=== PATIENT | male | born 1950 | race Caucasian/White ===

== ENCOUNTER → 2016-11-02 | Outpatient (CLI) | payer BC ==
[~2016-11-02] MED LIST: ASPI81TA28 PO; ATEN50TA8 PO; MISCCAP55 PO; MULT-506 PO; NIAC100T5 PO
[2016-11-02 10:11] LABS: HEMATOCRIT 48.3 % (42-52); MEAN CELL VOLUME 85.6 fL (80-100); MEAN CORPUSCULAR HEMOGLOBIN 27.3 pg (25-34); MEAN CORPUSCULAR HGB CONC 31.9 g/dl (32-36); MEAN PLATELET VOLUME 10.3 fL (7.4-10.4); PLATELET COUNT 248 K/uL (130-400); RED BLOOD COUNT 5.64 M/uL (4.7-6.1); WHITE BLOOD COUNT 5.16 K/uL (4.8-10.8)
--- NOTE | 2016-11-02 10:41 | DIAGNOSTIC IMAGING REPORT ---
ABDOMEN COMPLETE (US) CLINICAL HISTORY: Left lower quadrant abdominal pain. COMPARISON STUDY: No previous studies for comparison. FINDINGS: This exam is moderately compromised by suboptimal penetration. Hepatic echogenicity is increased consistent with fatty infiltration. Areas of fatty sparing are noted. There are no gallstones. No biliary ductal dilatation is present. The pancreas is partially obscured by overlying bowel gas. Size of the spleen is normal. Right kidney measures 12.4 cm and the left measures 10.5 cm. The proximal abdominal aorta is mildly dilated, measuring 3 cm in caliber. Portions of the abdominal aorta obscured but the distal abdominal aorta is normal in caliber, measuring 1.6 cm. No ascites is identified. IMPRESSION: 1. No gallstones or biliary ductal dilatation. 2. Fatty liver. 3. Borderline aneurysmal dilatation of the proximal abdominal aorta, measuring approximately 3 cm. Mid abdominal aorta is partially obscured but caliber of distal abdominal aorta is normal. 4. Study compromised by suboptimal penetration. Partially scattered pancreas. Electronically signed by: Garland Quan M.D. 11/02/2016 10:39 AM Dictated Date/Time: 11/02/2016 10:36 AM
[2016-11-02 10:44] LABS: ALT/SGPT 58 U/L (12-78); AST/SGOT 34 U/L (15-37); BLOOD UREA NITROGEN 12 mg/dl (7-18); BUN/CREATININE RATIO 12.4 (10-20); CALCIUM 9.3 mg/dl (8.5-10.1); CARBON DIOXIDE 28 mmol/L (21-32); CHLORIDE 105 mmol/L (98-107); GLUCOSE 79 mg/dl (70-99); POTASSIUM 4.3 mmol/L (3.5-5.1); SODIUM 139 mmol/L (136-145)
[2016-11-02 10:49] LABS: ALB/GLOB RATIO 1.1 (0.9-2); ALKALINE PHOSPHATASE 101 U/L (45-117); CHOLESTEROL 217 mg/dl (0-200); CHOLESTEROL/HDL RATIO 6.6; HDL CHOLESTEROL 33 mg/dl; LDL CHOLESTEROL CALCULATED 110 mg/dl; TRIGLYCERIDES 368 mg/dl (0-150); VERY LOW DENSITY LIPOPROT CALC 74 mg/dl
--- NOTE | 2016-11-19 12:12 | CODING QUERY MEDICAL NECESSITY ---
CQSUPPORTING DIAGNOSIS NEEDED A supporting diagnosis is required for the test/procedure performed on this patient in order for us to be reimbursed by the patient's insurance. Please provide a supporting diagnosis for the following test/procedure listed below next to the test name along with your signature. *If there is no additional diagnosis for this patient that would support the following test/procedure please document that below next to the test/procedure. Test(s)/Procedure(s) that require a supporting diagnosis: DOS 11/02/16 COMPLETE BLOOD COUNT PROSTATE SPECIFIC Provider Signature: Date: Thank you Erum Villafuerte Health Information Management Once completed, please kindly fax back to [phone] For questions please call [phone]
== END | disposition home or self-care (01) ==
LOC: C.ULTR 09:01
PROVIDERS: ATTEND Family Medicine
DX: I10 Essential (primary) hypertension (principal); R10.32 Left lower quadrant pain; R35.1 Nocturia; R32 Unspecified urinary incontinence; K76.0 Fatty (change of) liver, not elsewhere classified; R03.0 Elevated blood-pressure reading, without diagnosis of hypertension

== ENCOUNTER → 2017-09-05 | Outpatient (CLI) | payer BC ==
--- NOTE | 2017-09-05 14:29 | DIAGNOSTIC IMAGING REPORT ---
THORACIC SPINE 3 VIEWS ROUTINE HISTORY: Pain THORACIC PAIN AND LOW BACK PAIN COMPARISON: None. FINDINGS: There is no fracture. Considerable scoliosis. Moderate degenerative disc change throughout. No evidence for compression deformity. IMPRESSION: Scoliosis. Degenerative change. No acute process. The above report was generated using voice recognition software. It may contain grammatical, syntax or spelling errors. Electronically signed by: Luc Meraz M.D. 09/05/2017 2:27 PM Dictated Date/Time: 09/05/2017 2:27 PM
--- NOTE | 2017-09-05 14:51 | DIAGNOSTIC IMAGING REPORT ---
L-SPINE MIN 4 VIEWS ROUTINE HISTORY: Pain COMPARISON: None. FINDINGS: There is no fracture. Mild scoliosis of the lumbar spine. Vertebral body stature is unremarkable. Mild degenerative disc change throughout. No evidence for subluxation. IMPRESSION: Mild scoliosis. Mild degenerative disc change. No acute process. The above report was generated using voice recognition software. It may contain grammatical, syntax or spelling errors. Electronically signed by: Luc Meraz M.D. 09/05/2017 2:49 PM Dictated Date/Time: 09/05/2017 2:47 PM
[2017-09-05 15:58] LABS: ALBUMIN 3.9 gm/dl (3.4-5.0); ALKALINE PHOSPHATASE 98 U/L (45-117); ALT/SGPT 40 U/L (12-78); AST/SGOT 25 U/L (15-37); BLOOD UREA NITROGEN 13 mg/dl (7-18); CALCIUM 8.9 mg/dl (8.5-10.1); CARBON DIOXIDE 26 mmol/L (21-32); CREATININE 1.19 mg/dl (0.60-1.40); GLUCOSE 114 mg/dl (70-99); POTASSIUM 4.1 mmol/L (3.5-5.1); SODIUM 140 mmol/L (136-145); TOTAL PROTEIN 8.1 gm/dl (6.4-8.2)
== END | disposition home or self-care (01) ==
LOC: C.RAD 13:24
PROVIDERS: ATTEND Family Medicine
DX: M54.5 Low back pain (principal); M54.6 Pain in thoracic spine; M51.34 Other intervertebral disc degeneration, thoracic region; M51.36 Other intervertebral disc degeneration, lumbar region

== ENCOUNTER 2024-07-09 09:56 | Inpatient (IN) ==
--- NOTE | 2024-07-09 10:24 | Emergency Department Note ---
Impression & Plan Acute hypoxemic respiratory failure, Bladder rupture, MAU (acute kidney injury) ED Provider Note NAME: JAMAR SPRING AGE: 73 SEX: M : 1950 ARRIVES VIA: Walk-In INFORMANT: Patient, ED PROVIDER(S): Olivier Burch MD CHIEF COMPLAINT: Abdominal pain MEDICAL DECISION MAKING: Patient presents with the above. Recent extraperitoneal bladder perforation. Creatinine still elevated so CT abdomen pelvis performed. IV was established and blood work was obtained. [id number] showed a creatinine greater than 3. Patient was ordered IV Tylenol as well as IV Zofran. Chest x-ray performed as the patient had borderline hypoxia with a sats of 89%. The patient's blood work shows a white count of 11.9 with normal hemoglobin and platelet count kidney function still elevated at 2.94 but slightly improved compared to his most recent presentation to the emergency department. Patient's chest x-ray did show concern for the possibility of a right lower lobe pneumonia. The patient was ordered IV Rocephin. CT abdomen pelvis does show the persistent extraperitoneal bladder rupture. Retroperitoneal gas similar to CT on the . No evidence of bowel obstruction but could have ileus. Given the patient's hypoxia as well as persistent kidney dysfunction and the fact that the patient left AGAINST MEDICAL ADVICE to believe patient would benefit from inpatient treatment at this time. I did speak with JESSICA Renae and the patient will be seen by urology. I also did speak with Dr. Dennis and the patient was admitted to the medicine service. Critical Care: I have personally spent 52 minutes of critical care time in direct management of this patient. This includes bedside care, interpretation of diagnostic studies, and testing, discussion with consultants, patient, and family members, and other require inpatient management activities. This 52 minutes is in excess of all separately billable procedures. Discussion w/ other healthcare providers: JESSICA Renae with Dr. Fuentes urology Dr. Dennis inpatient medicine service Prior /Outside records reviewed: none Differential diagnosis: Appendicitis, testicular torsion, UTI, diverticulitis, obstruction, renal colic, mesenteric adenitis, enteririts, PUD, pancreatitis, biliary pathology, hernia, volvulus, constipation, as well as other pathologies were considered. Diagnostics, as interpreted by me: ECG: None Cardiac monitoring: An order was placed for continuous cardiac monitoring. The monitor shows a rate of 79 with sinus rhythm. Patient was placed on pulse oximetry Medical decision rules: none Imaging studies: I informally interpreted the patient's chest x-ray shows concern for right lower lobe consolidation with formal report to follow. HPI: Patient presents due to concerns for lower abdominal pain. The patient states that it really worsened yesterday into today. The patient states it is in the lower abdomen but worse on the left side. Patient reports prior history of diverticulitis and this may feel similar. Patient reportedly did have a recent urologic procedure completed by Dr. Fuentes. The patient reportedly did leave AGAINST MEDICAL ADVICE at that time. Patient denies any chest pains or shortness of breath. Former smoker let smoking 40 years ago. The patient denies any cough or fever. Patient did not take anything for symptoms at home. Patient states that he still has a catheter in place with a leg bag. PAST MEDICAL HISTORY: See Below PAST SURGICAL HISTORY: See Below SOCIAL HISTORY: See Below HOME MEDICATIONS: See Below ALLERGIES: See Below VITALS: See Below PHYSICAL EXAMINATION: GENERAL: NAD, non-toxic. EYE EXAM: Normal conjunctiva. PERRL, no anisocoria and EOM's grossly intact w/o pain. OROPHARYNX: Moist mucus membranes, grossly normal dentition. NECK: Trachea midline, no stridor. Supple, no nuchal rigidity, no adenopathy, non-tender. No signs of meningismus. FROM of the neck with good chin to chest and neck extension. LUNGS: Clear to auscultation. Normal chest wall mechanics. HEART: NSR, no MRG. ABDOMEN: Abdomen soft, non-tender, no masses, no rebound or guarding. BACK: No CVA TTP. SKIN: No rashes and no bruising. UPPER EXTREMITIES: Upper extremities are grossly normal. LOWER EXTREMITIES: Grossly normal, no edema. NEURO EXAM: Awake and alert, follows commands, no obvious facial asymmetry, normal speech, moves all 4 extremities. Past Med/Surg History Problem List (Updated 07/10/24 @ 07:05 by Olivier Burch MD) MAU (acute kidney injury) (Acute) Bladder rupture (Acute) Acute hypoxemic respiratory failure (Acute) Ex-smoker Pulmonary sequestration Abnormal chest CT Peritonitis Complicated UTI (urinary tract infection) Acute metabolic encephalopathy Ileus MAU (acute kidney injury) (Acute) Hypoxia (Acute) Extraperitoneal bladder perforation (Acute) Extraperitoneal bladder perforation Kidney stones (Chronic) Bronchogenic cyst Peripheral vascular disease Hyperlipidemia Thoracic aortic aneurysm (TAA) Coronary artery disease Vitamin D deficiency Chronic kidney disease with active medical management without dialysis, stage 3 (moderate) Atypical angina Surgical wound, non healing (Acute) Encounter for pre-operative examination Tinnitus, bilateral Sensorineural hearing loss (SNHL) of left ear with restricted hearing of right ear Headache Scoliosis Low back pain Hypertension Medical History Bladder stone s/p removal 07/06/24 (Dr Tj Fuentes) Carotid artery disease mild Hx of peripheral vascular disease Hx of hyperlipidemia Hx of coronary artery disease Chronic kidney disease with active medical management without dialysis, stage 3 (moderate) [facility] Nephrology - Dr. Saul Thoracic aortic aneurysm (TAA) 4.9cm Hx of scoliosis Hx of renal calculi left staghorn calculus - s/p lithotripsy - 07/06/24 (Dr Tj Fuentes) Hypertension History of asthma no current meds Melanoma in situ hx-removed; left foot - 2023 - Dr Michela Lott, [facility] [place] Surgical History Status post laser lithotripsy of ureteral calculus - Dr Tj Fuentes History of cataract surgery rt/lt Hx of melanoma excision Hx of basal cell carcinoma excision H/O umbilical hernia repair S/P appendectomy S/P colonoscopy Family History Father , age 101 Kidney stones Myocardial infarction Family/Other Kidney stones Mother , age 65 Aortic aneurysm Social History Smoking Status: Former smoker Tobacco Type: Cigarettes Smoking End Date: early ; smoked for 10-15 years; Second Hand Exposure: No; Do You Dip or Chew Tobacco: No; Tobacco Cessation Education Requested by Patient: No Hx Alcohol Use: No Hx Substance Use: No Preferred Language: German Communication Ability: Effective Visual Impairment: No Limitations Hearing Ability: Normal [employer] Team [employer] Required: No Beliefs That Will Affect Care: None marital status: Single Current Living Situation: Alone Current Living Situation Comment: [place] current occupational status: retired current occupation: [employer] to [employer] How many Children do You have: 0 Other Information That Helps Us Care for You: No Feels Safe at Home: Yes Safety Concerns: Feels Safe At This Time Diet: regular caffeine: Yes Physical Activity Frequency: Does not Exercise Do you think of yourself as: straight/heterosexual Gender Identity: Male Assistive Devices: None Allergies Allergies Allergy/AdvReac Type Severity Reaction Status Date / Time No Known Allergies Allergy Verified 07/06/24 08:07 Home Meds Home Medications Medication Instructions Recorded Confirmed atenolol 50 mg tablet 50 mg PO QPM 11/12/19 07/09/24 aspirin-caffeine 500 mg-32.5 mg 1 tab PO DAILY PRN Pain 08/07/22 07/09/24 tablet (Soraya Back and Body) aspirin 81 mg tablet,delayed 81 mg PO QPM 11/28/23 07/09/24 release (Adult Low Dose Aspirin) omega 4-fud-wzs-fish oil 60 mg-90 1 cap PO QPM 11/28/23 07/09/24 mg-500 mg capsule (Fish Oil) dandelion root 525 mg capsule 525 mg PO QPM 06/26/24 07/09/24 Previous Rx's Medication Instructions Recorded phenazopyridine 200 mg tablet 200 mg PO Q8H PRN pain #10 tabs 07/06/24 (Pyridium) tamsulosin 0.4 mg capsule 0.4 mg PO HS #30 caps 07/06/24 cephalexin 500 mg capsule 500 mg PO Q6H 7 days #28 caps 07/07/24 Results & Data (ED) Vital Signs Vital Signs - 24 hr 07/09/24 10:18 07/09/24 10:42 07/09/24 11:00 Temperature 37.2 C Temperature Source Oral Pulse Rate 78 Pulse Rate [Apical] Respiratory Rate 20 Respiratory Effort / Characteristics Non-Labored Respiratory Depth Normal Respiratory Pattern Regular Blood Pressure 155/87 H Blood Pressure [Right Arm] Blood Pressure Mean 109 Blood Pressure Mean [Right Arm] Pulse Oximetry 92 89 L 94 Oxygen Delivery Method Room Air Room Air Nasal Cannula Oxygen Flow Rate 2 Sepsis Recent Fever Within 48 Hours No Sepsis New/Unexplained Change in Mental Status N/A Sepsis Action Taken by Nursing No Action Required 07/09/24 11:48 07/09/24 13:04 Temperature Temperature Source Pulse Rate 72 Pulse Rate [Apical] 64 Respiratory Rate 20 Respiratory Effort / Characteristics Respiratory Depth Normal Respiratory Pattern Blood Pressure Blood Pressure [Right Arm] 124/72 Blood Pressure Mean Blood Pressure Mean [Right Arm] 89 Pulse Oximetry 98 Oxygen Delivery Method Nasal Cannula Oxygen Flow Rate 2 Sepsis Recent Fever Within 48 Hours Sepsis New/Unexplained Change in Mental Status Sepsis Action Taken by Long Term Medications Current Medication List: was personally reviewed by me Laboratory Data Attestation: I reviewed the patient's lab results. 07/10/24 05:44 07/10/24 05:44 Lab Results 07/09/24 07/09/24 Range/Units 10:43 10:49 WBC 11.94 H (4.8-10.8) K/ul RBC 5.83 (4.70-6.10) M/uL Hgb 15.1 (14.0-18.0) g/dl POC Hgb 16.7 (14.0-18.0) g/dl Hct 46.9 (42.0-52.0) % POC Hct 49 (42-52) % MCV 80.4 (80.0-100.0) fL MCH 25.9 (25.0-34.0) pg MCHC 32.2 (32.0-36.0) g/dL RDW Std Deviation 46.8 H (36.4-46.3) fL RDW Coeff of Jennifer 17.1 H (11.5-14.5) % Plt Count 255 (130-400) K/uL MPV 10.1 (9.4-12.4) fL Immature Gran % (Auto) 1.2 % Neut % (Auto) 85.1 % Lymph % (Auto) 5.7 % Wallace % (Auto) 7.5 % Eos % (Auto) 0.1 % Baso % (Auto) 0.4 % Neut # (Auto) 10.17 H (1.40-6.50) K/uL Lymph # (Auto) 0.68 L (1.20-3.40) K/uL Wallace # (Auto) 0.89 H (0.11-0.59) K/uL Eos # (Auto) 0.01 (0.00-0.50) K/uL Baso # (Auto) 0.05 (0.00-0.20) K/uL Immature Gran # (Auto) 0.14 (0.01-0.20) K/uL POC Sodium 139 (135-144) mmol/L Sodium 138 (136-145) mmol/L POC Potassium 4.4 (3.3-5.0) mmol/L Potassium 4.4 (3.5-5.1) mmol/L POC Chloride 107 (101-112) mmol/L Chloride 106 (98-107) mmol/L Carbon Dioxide 21 (21-32) mmol/L POC Total CO2 19 L (24-31) mmol/L Anion Gap 11 (3-11) POC Anion Gap 18.0 (16-25) mmol/L POC BUN 41 H (7-18) mg/dl BUN 43 H (6-23) mg/dl Creatinine 2.94 H (0.6-1.4) mg/dl POC Creatinine 3.3 H (0.6-1.3) mg/dl Est Cr Clr Drug Dosing 26.2 ml/min eGFR 21.65 BUN/Creatinine Ratio 14.6 (10-20) Glucose 129 H (70-99(Fasting)) mg/dl POC Glucose (other) 126 H (70-99) mg/dl Calcium 9.6 (8.6-10.3) mg/dl POC Ioniz Calcium Mika 1.17 (1.12-1.32) mmol/l Total Bilirubin 0.7 (0.2-1.0) mg/dl AST 16 (13-39) U/L ALT 7 (7-52) U/L Alkaline Phosphatase 100 (34-104) U/L Total Protein 8.2 (6.0-8.3) gm/dl Albumin 4.1 (3.4-5.0) gm/dl Globulin 4.1 H (2.5-4.0) gm/dl Albumin/Globulin Ratio 1.0 (0.9-2) Lipase 10 L (11-82) U/L Procalcitonin 0.34 (0-0.5) ng/ml Administered Medications Lactated Ringer's (Lr) 1,000 mls @ 100 mls/hr IV .Q10H MARIAJOSE Stop: 07/10/24 09:14 Last Admin: 07/10/24 00:49 Dose: 100 mls/hr Documented By: Infusion: 07/10/24 00:46 Dose: Infused Documented By: Admin: 07/09/24 13:31 Dose: 100 mls/hr Documented By: RBUIA Famotidine (Pepcid 20mg Iv Push) 20 mg in 5 mls @ 2.5 mls/min IV DAILY MARIAJOSE Stop: 08/08/24 16:14 Last Admin: 07/09/24 17:10 Dose: 2.5 mls/min Documented By: Piperacillin Sod/Tazobactam Sod (Zosyn) 4.5 gm in 100 mls @ 25 mls/hr IV Q8H MARIAJOSE; Protocol Stop: 07/19/24 19:59 Last Admin: 07/10/24 04:00 Dose: 25 mls/hr Documented By: Infusion: 07/10/24 00:54 Dose: Infused Documented By: Admin: 07/09/24 20:54 Dose: 25 mls/hr Documented By: JACQUES Acetaminophen (Ofirmev) 1,000 mg in 100 mls @ 400 mls/hr IV Q8H PRN PRN Reason: mild pain or T>38 C Stop: 07/12/24 15:47 Last Infusion: 07/09/24 21:23 Dose: Infused Documented By: Admin: 07/09/24 20:57 Dose: 400 mls/hr Documented By: JACQUES Tamsulosin HCl (Tamsulosin Hcl 0.4 Mg Cap) 0.4 mg PO HS MARIAJOSE Stop: 08/08/24 20:59 Last Admin: 07/09/24 21:23 Dose: Not Given Documented By: JACQUES Discontinued Medications Acetaminophen (Ofirmev) 1,000 mg in 100 mls @ 400 mls/hr IV NOW STA Stop: 07/09/24 10:56 Last Infusion: 07/09/24 12:28 Dose: Infused Documented By: Admin: 07/09/24 11:42 Dose: 400 mls/hr Documented By: RUBIA Ceftriaxone Sodium (Rocephin) 2,000 mg in 50 mls @ 100 mls/hr IV NOW STA Stop: 07/09/24 12:53 Last Admin: 07/09/24 13:05 Dose: Not Given Documented By: RUBIA Daptomycin 500 mg/ Syringe 10 mls @ 5 mls/min IV NOW STA; Protocol Stop: 07/09/24 13:07 Last Admin: 07/09/24 14:52 Dose: 5 mls/min Documented By: MMG Piperacillin Sod/Tazobactam Sod (Zosyn) 4.5 gm in 100 mls @ 200 mls/hr IV NOW ONE; Protocol Stop: 07/09/24 13:32 Last Infusion: 07/09/24 16:45 Dose: Infused Documented By: Admin: 07/09/24 14:51 Dose: 200 mls/hr Documented By: MMG Ioversol (Optiray 320 100ml) 90 ml IV ONCE ONE Stop: 07/09/24 15:23 Last Admin: 07/09/24 17:10 Dose: Not Given Documented By: ENS Imaging Data Radiologist's Impression: Chest X-Ray 07/09/24 10:54 XR chest 1V portable CLINICAL HISTORY: low sats COMPARISON STUDY: 08/19/2023 FINDINGS: There is stable prominent cardiomegaly with increased pulmonary vascular congestion. There is increased stranding opacity in the lung bases with partial obscuration of the diaphragm. No pleural effusion or pneumothorax. Stable scoliosis. IMPRESSION: 1. CHF. 2. Atelectasis versus pneumonia in the lung bases. ACT 112: Negative or not required by law. Electronically signed by: Norbert Murray M.D. 07/09/2024 11:13 AM Abdomen/Pelvis CT 07/09/24 10:53 CT OF THE ABDOMEN AND PELVIS WITHOUT CONTRAST CLINICAL HISTORY: L>R lower ab pain; recent uro procedure COMPARISON STUDY: CT of the abdomen and pelvis July 07, 2024. TECHNIQUE: Axial images of the abdomen and pelvis were obtained without IV contrast. Images were reviewed in the axial, sagittal, and coronal planes. Automated exposure control was utilized for the study. A dose lowering technique was utilized adhering to the principles of ALARA. FINDINGS: An irregular 9.1 cm right lower lobe opacity is similar to CT of July 07, 2024. No pneumatosis or portal venous gas is present. There is hepatic steatosis. Peripherally calcified 6.2 x 5.1 cm lesion adjacent to the right adrenal gland is again noted. Spleen, adrenal glands and pancreas are unremarkable on unenhanced exam. There is colonic diverticulosis without evidence for acute diverticulitis. There is no evidence for a bowel obstruction. There is mild gaseous distention of the colon, slightly increased since prior examination. Prostate is enlarged, measuring 5.7 cm in transverse diameter. A Ceron has been placed in the interim. Bladder is collapsed. There is a small amount gas within the bladder. Extensive extraperitoneal gas, predominantly within the space of Retzius, is similar to CT of July 07, 2024. Associated right retroperitoneal gas is also similar to prior exam. Associated fluid within the space of Retzius has decreased in amount. No definite pneumoperitoneum. Left ureteral stent remains in place. There is no hydronephrosis. There are no ureteral calculi. Bilateral renal calculi are again noted. IMPRESSION: 1. Extensive extraperitoneal and right retroperitoneal gas, similar to CT of July 07, 2024. Associated extraperitoneal fluid has decreased since prior exam. The findings suggest extraperitoneal bladder rupture. 2. Interval placement of a Ceron catheter. 3. Left ureteral stent in place. No hydronephrosis. No ureteral calculi. Bilateral nephrolithiasis. 4. Mild gaseous distention of the colon without evidence for a bowel obstruction. This may represent an ileus. 5. Colonic diverticulosis. 6. Additional findings, as described above. These are unchanged since prior CT. ACT 112: Negative or not required by law. Electronically signed by: Garland Quan M.D. 07/09/2024 11:37 AM Chest X-Ray 07/09/24 10:54 XR chest 1V portable CLINICAL HISTORY: low sats COMPARISON STUDY: 08/19/2023 FINDINGS: There is stable prominent cardiomegaly with increased pulmonary vascular congestion. There is increased stranding opacity in the lung bases with partial obscuration of the diaphragm. No pleural effusion or pneumothorax. Stable scoliosis. IMPRESSION: 1. CHF. 2. Atelectasis versus pneumonia in the lung bases. ACT 112: Negative or not required by law. Electronically signed by: Norbert Murray M.D. 07/09/2024 11:13 AM Discharge Plan Visit Data Chief Complaint: Abdominal Pain Stated Complaint: REF BY DOC, ABD PAIN ED Provider: Olivier Burch Discharge Problem: Acute hypoxemic respiratory failure, Bladder rupture, MAU (acute kidney injury) Patient Disposition: Admitted As Inpatient Condition: Good Discharge Instructions Interventions: ED Discharge Assessment Last Done: 07/09/24 14:46 Discharge Problem:
[2024-07-09 11:01] LABS: Basophils # (auto) 0.05 K/uL (0.00-0.20); Basophils % (auto) 0.4 %; Eosinophils # (auto) 0.01 K/uL (0.00-0.50); Eosinophils % (auto) 0.1 %; Hematocrit (blood only) 46.9 % (42.0-52.0); Hemoglobin 15.1 g/dl (14.0-18.0); Immature Granulocytes # (auto) 0.14 K/uL (0.01-0.20); Immature Granulocytes % (auto) 1.2 %; Lymphocytes # (auto) 0.68 K/uL (1.20-3.40); Lymphocytes % (auto) 5.7 %; Mean Corpuscular Hemoglobin 25.9 pg (25.0-34.0); Mean Corpuscular Hgb Conc 32.2 g/dL (32.0-36.0); Mean Corpuscular Volume 80.4 fL (80.0-100.0); Mean Platelet Volume 10.1 fL (9.4-12.4); Monocytes # (auto) 0.89 K/uL (0.11-0.59); Monocytes % (auto) 7.5 %; Neutrophils # (auto) 10.17 K/uL (1.40-6.50); Neutrophils % (auto) 85.1 %; Platelet Count 255 K/uL (130-400); RDW Coefficient of Variation 17.1 % (11.5-14.5); RDW Standard Deviation 46.8 fL (36.4-46.3); Red Blood Count 5.83 M/uL (4.70-6.10); White Blood Count 11.94 K/ul (4.8-10.8)
[2024-07-09 11:01] LABS: iSTAT Creatinine 3.3 mg/dl (0.6-1.3); iSTAT Hemoglobin 16.7 g/dl (14.0-18.0); iSTAT Ionized Calcium 1.17 mmol/l (1.12-1.32); iSTAT Potassium 4.4 mmol/L (3.3-5.0)
--- NOTE | 2024-07-09 11:15 | XRay Report ---
XR chest 1V portable CLINICAL HISTORY: low sats COMPARISON STUDY: 08/19/2023 FINDINGS: There is stable prominent cardiomegaly with increased pulmonary vascular congestion. There is increased stranding opacity in the lung bases with partial obscuration of the diaphragm. No pleura l effusion or pneumothorax. Stable scoliosis. IMPRESSION: 1. CHF. 2. Atelectasis versus pneumonia in the lung bases. ACT 112: Negative or not required by law. Electronically signed by: Norbert Murray M.D. 07/09/2024 11:13 AM
[2024-07-09 11:19] LABS: Albumin Level 4.1 gm/dl (3.4-5.0); BUN Creatinine Ratio 14.6 (10-20); Bilirubin,Total 0.7 mg/dl (0.2-1.0); Calcium 9.6 mg/dl (8.6-10.3); Creatinine Clr Calc Pharmacy 26.2 ml/min; Globulin 4.1 gm/dl (2.5-4.0); Potassium 4.4 mmol/L (3.5-5.1); Total Protein 8.2 gm/dl (6.0-8.3)
--- NOTE | 2024-07-09 11:38 | CT Scan Report ---
CT OF THE ABDOMEN AND PELVIS WITHOUT CONTRAST CLINICAL HISTORY: L>R lower ab pain; recent uro procedure COMPARISON STUDY: CT of the abdomen and pelvis July 07, 2024. TECHNIQUE: Axial images of the abdomen and pelvis were obtained without IV contrast. Images were revi ewed in the axial, sagittal, and coronal planes. Automated exposure control was utilized for the chi dy. A dose lowering technique was utilized adhering to the principles of ALARA. FINDINGS: An irregular 9.1 cm right lower lobe opacity is similar to CT of July 07, 2024. No pneumatos is or portal venous gas is present. There is hepatic steatosis. Peripherally calcified 6.2 x 5.1 cm l esion adjacent to the right adrenal gland is again noted. Spleen, adrenal glands and pancreas are unr emarkable on unenhanced exam. There is colonic diverticulosis without evidence for acute diverticulit is. There is no evidence for a bowel obstruction. There is mild gaseous distention of the colon, slig htly increased since prior examination. Prostate is enlarged, measuring 5.7 cm in transverse diameter . A Ceron has been placed in the interim. Bladder is collapsed. There is a small amount gas within th e bladder. Extensive extraperitoneal gas, predominantly within the space of Retzius, is similar to CT of July 07, 2024. Associated right retroperitoneal gas is also similar to prior exam. Associated flui d within the space of Retzius has decreased in amount. No definite pneumoperitoneum. Left ureteral st ent remains in place. There is no hydronephrosis. There are no ureteral calculi. Bilateral renal calc do are again noted. IMPRESSION: 1. Extensive extraperitoneal and right retroperitoneal gas, similar to CT of July 07, 2024. Associated extraperitoneal fluid has decreased since prior exam. The findings suggest extraperitoneal bladder r upture. 2. Interval placement of a Ceron catheter. 3. Left ureteral stent in place. No hydronephrosis. No ureteral calculi. Bilateral nephrolithiasis. 4. Mild gaseous distention of the colon without evidence for a bowel obstruction. This may represent an ileus. 5. Colonic diverticulosis. 6. Additional findings, as described above. These are unchanged since prior CT. ACT 112: Negative or not required by law. Electronically signed by: Garland Quan M.D. 07/09/2024 11:37 AM
[2024-07-09] MEDS: ACETAMINOPHEN 1,000 MG/100 ML VIAL IV STA (11:42)
--- NOTE | 2024-07-09 12:26 | History & Physical Report ---
Date of Service July 09, 2024 Assessment & Plan (1) Extraperitoneal bladder perforation: (2) MAU (acute kidney injury): (3) Ileus: (4) Complicated UTI (urinary tract infection): (5) Peritonitis: (6) Acute metabolic encephalopathy: (7) Hypoxia: (8) Kidney stones: (9) Peripheral vascular disease: (10) Hyperlipidemia: (11) Thoracic aortic aneurysm (TAA): (12) Hypertension: (13) Abnormal chest CT: Plan 73yo male with history of HTN, thoracic aortic aneurysm, melanoma of left foot s/p excision 2023, and kidney stone/bladder stone who presents today from home with ongoing left-sided abdominal pain as well as suprapubic pain. Patient underwent cystoscopy with Laser Cystolitholapaxy and Laser fulguration/cauterization of prostatic varicosity, left Ureteronephroscopy, Retrograde Pyelogram, Ureteral Dilation, Laser Destruction of Stone, Basket Extraction of the Stone, Insertion of urinary stent on left by Dr Jamar Fuentes on 07/06/24. He had a large bladder stone - about 2.5cm in size - as well as a large staghorn kidney stone on the left that were treated/removed. Post-op he was discharged to home in stable condition. He was asked to take prophylactic keflex upon discharge home. Returned to the [facility] ER on 07/07/24 with complaints of abdominal pain, nausea, difficulty voiding, and hematuria. CT abd/pelvis at that time showed findings concerning for extraperitoneal bladder rupture with free air & free fluid. [facility] Urology was consulted. He had evidence of MAU with creatinine of 3.8 thought 2nd to bladder perforation/recent surgery. Geiger catheter was placed. By report he signed out AMA as the ER attending was planning to do additional testing for hypoxia noted while in the ER that evening. #abdominal pain - -suspect multifactorial causes including peritonitis from his bladder rupture, ?UTI, ileus, etc. -CT a/p today shows improved free fluid but still with considerable free air in the abdomen -CT also shows evidence of colonic ileus -NPO, IVF, IV antibiotics in the form of zosyn/daptomycin, morphine prn, urology consult as below, serial exams #extraperitoneal bladder rupture - -as seen initially on CT abd/pelvis on 07/07/2024 -this occurred in the setting of recent cystoscopy with considerable urological intervention of a large bladder stone, left-sided staghorn stone, stent placement on left, fulguration of varicosities, etc. -urology has been consulted -they are planning on CT cystogram to confirm ongoing bladder leak -appreciate urology consultation & management -NPO, IVF, IV antibiotics, pain meds, etc. -continue geiger -await CT cystogram results #ileus - -clinical history & radiographic findings consistent with such -recent surgery, bladder rupture with free air/fluid, etc all to blame -keep NPO -IV fluids -ambulation as tolerated -serial exams -await passage of flatus & stool -keep mag/K wnl #suspected complicated UTI - -u/a suspicious for such although no bacteria on microscopy -urine cx, blood cx's dispatched -in light of bladder rupture, recent surgery/instrumentation, peritonitis, etc --> broad spectrum IV abx with zosyn & daptomycin #peritonitis - suspected - -as above #MAU - -improving -peak creatinine was 3.8 on 07/07/24 -now 2.9 today -continue geiger -IV fluids -daily BMP #acute metabolic encephalopathy - -2nd to bladder rupture, ?UTI, peritonitis, MAU, recent surgery, etc. -supportive care -treat all individual issues #hypertension - -hold atenolol -cont flomax in light of urological issues #hypoxia with abnormal RLL on chest imaging - -the RLL abnormal lung findings appear chronic -patient vaguely remembers being told 10+ years ago about abnormalities in the right lower lobe -he does have chronic cough but that cough is unchanged -I have low suspicion that he has an acute process of the RLL such as a superimposed RLL pneumonia -with that said I consulted Dr Bob from Pulmonary for his opinion regarding the RLL findings -bronchogenic cyst? pulmonary sequestration? -in light of hypoxia seen on 07/07 as well as today he should have a formal 2- step prior to discharge home -in light of body habitus, large neck, etc he should also have a formal sleep study as outpatient in the future -order flutter valve & incentive spirometry as the abdominal distension will lead to shallow breathing and atelectasis -of note - pt's chest x-ray today with "CHF" on report but he has no clinical evidence of such on examination #h/o melanoma of left foot in 2023, s/p excision - -no signs of metastatic disease/recurrent disease on imaging #thoracic ascending aortic aneurysm - -4.9cm in diameter on CT chest in 2023; he is due for repeat imaging -he will be seen at [facility] in the next few weeks as outpatient for the abnormal RLL; suspect they will repeat his chest imaging at that time and aneurysm can be rechecked then #DVT proph - -urology is ok with low-dose heparin SC - 5000 BID - starting tomorrow; ordered for 07/10 AM #morbid obesity - BMI ~40 #PAD - -patient had arterial duplex studies of both legs with ABIs at [facility] in 2023 -RITIKA on right was wnl; RITIKA on left was reduced -duplex showed mild PAD of right leg with mod-severe PAD of the LLE -he denies any recent PAD symptoms of either leg -should continue on aspirin 81mg daily -LDL was 139 earlier this month --- ideally should be on statin therapy for such; I am not aware of any statin intolerance will order PT/OT evals while here due to weakness History of Present Illness Chief Complaint: abdominal pain Primary Care Provider: Martha Huggins, 73yo male with history of HTN, thoracic aortic aneurysm, melanoma of left foot s/p excision 2023, and kidney stone/bladder stone who presents today from home with ongoing left-sided abdominal pain as well as suprapubic pain. Patient underwent cystoscopy with Laser Cystolitholapaxy and Laser fulguration/cauterization of prostatic varicosity, left Ureteronephroscopy, Retrograde Pyelogram, Ureteral Dilation, Laser Destruction of Stone, Basket Extraction of the Stone, Insertion of urinary stent on left by Dr Jamar Fuentes on 07/06/24. He had a large bladder stone - about 2.5cm in size - as well as a large staghorn kidney stone on the left that were treated/removed. Post-op he was discharged to home in stable condition. He was asked to take prophylactic keflex upon discharge home. He returned to [facility] on 07/07/24 with abdominal pain, nausea, difficulty voiding, and gross hematuria. CT abd/pelvis at that time showed evidence of bladder perforation with free fluid as well as free air. Creatinine was elevated to 3.8. Was seen by [facility] - geiger catheter placed - and ultimately signed out AMA from the ER on 07/07/24 per the ER attending documentation from that evening. Upon return home he continued with abdominal pain, nausea, no flatus or bowel movement, abdominal distension/bloating, and poor appetite. He also has felt confused. Denies dyspnea but does have baseline THOMAS. Has chronic, daily cough with some sputum production. Reports he will be seeing [facility] in a few weeks for the chronic right lower lobe abnormalities seen on CT scan. While in the ER he was noted to be mildly hypoxic in room air - 89% - and thus supplemental oxygen was added. During my admission assessment his main complaint is that of the left-sided abdominal pain & suprapubic pain. Denies any issues with his geiger catheter since insertion on 07/07/24. Allergies Allergy/AdvReac Type Severity Reaction Status Date / Time No Known Allergies Allergy Verified 07/06/24 08:07 Home Medications Medication Instructions Recorded Confirmed Type atenolol 50 mg tablet 50 mg PO QPM 11/12/19 07/09/24 History aspirin-caffeine 500 mg-32.5 mg 1 tab PO DAILY PRN Pain 08/07/22 07/09/24 History tablet (Soraya Back and Body) aspirin 81 mg tablet,delayed 81 mg PO QPM 11/28/23 07/09/24 History release (Adult Low Dose Aspirin) omega 2-ivx-gev-fish oil 60 mg-90 1 cap PO QPM 11/28/23 07/09/24 History mg-500 mg capsule (Fish Oil) dandelion root 525 mg capsule 525 mg PO QPM 06/26/24 07/09/24 History phenazopyridine 200 mg tablet 200 mg PO Q8H PRN pain #10 tabs 07/06/24 07/09/24 Rx (Pyridium) tamsulosin 0.4 mg capsule 0.4 mg PO HS #30 caps 07/06/24 07/09/24 Rx cephalexin 500 mg capsule 500 mg PO Q6H 7 days #28 caps 07/07/24 07/09/24 Rx Past Med/Surg History Problem List (Updated 07/09/24 @ 17:52 by July Bob MD, [facility]) Ex-smoker Pulmonary sequestration Abnormal chest CT Peritonitis Complicated UTI (urinary tract infection) Acute metabolic encephalopathy Ileus MAU (acute kidney injury) (Acute) Hypoxia (Acute) Extraperitoneal bladder perforation (Acute) Extraperitoneal bladder perforation Kidney stones (Chronic) Bronchogenic cyst Peripheral vascular disease Hyperlipidemia Thoracic aortic aneurysm (TAA) Coronary artery disease Vitamin D deficiency Chronic kidney disease with active medical management without dialysis, stage 3 (moderate) Atypical angina Surgical wound, non healing (Acute) Encounter for pre-operative examination Tinnitus, bilateral Sensorineural hearing loss (SNHL) of left ear with restricted hearing of right ear Headache Scoliosis Low back pain Hypertension Medical History Bladder stone s/p removal 07/06/24 (Dr Tj Fuentes) Carotid artery disease mild Hx of peripheral vascular disease Hx of hyperlipidemia Hx of coronary artery disease Chronic kidney disease with active medical management without dialysis, stage 3 (moderate) [facility] Nephrology - Dr. Saul Thoracic aortic aneurysm (TAA) 4.9cm Hx of scoliosis Hx of renal calculi left staghorn calculus - s/p lithotripsy - 07/06/24 (Dr Tj Fuentes) Hypertension History of asthma no current meds Melanoma in situ hx-removed; left foot - 2023 - Dr Michela Lott, [facility] Dermatology [place] Surgical History Status post laser lithotripsy of ureteral calculus - Dr Tj Fuentes History of cataract surgery rt/lt Hx of melanoma excision Hx of basal cell carcinoma excision H/O umbilical hernia repair S/P appendectomy S/P colonoscopy Family History Father , age 101 Kidney stones Myocardial infarction Family/Other Kidney stones Mother , age 65 Aortic aneurysm Social History Smoking Status: Former smoker Tobacco Type: Cigarettes Smoking End Date: early ; smoked for 10-15 years; Second Hand Exposure: No; Do You Dip or Chew Tobacco: No; Tobacco Cessation Education Requested by Patient: No Hx Alcohol Use: No Hx Substance Use: No Preferred Language: Korean Communication Ability: Effective Visual Impairment: No Limitations Hearing Ability: Normal Staffing Assistant Required: No Beliefs That Will Affect Care: None marital status: Single Current Living Situation: Alone Current Living Situation Comment: [place]iel current occupational status: retired 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 How many Children do You have: 0 Other Information That Helps Us Care for You: No Feels Safe at Home: Yes Safety Concerns: Feels Safe At This Time Diet: regular caffeine: Yes Physical Activity Frequency: Does not Exercise Do you think of yourself as: straight/heterosexual Gender Identity: Male Assistive Devices: None Review of Systems Review of Systems: gen - no objective fevers but has felt warm/cold; poor appetite since his surgery; no weight changes eyes - no vision changes HENT - chronic cough, but no sore throat or nasal congestion CV - no chest pain; occasional palpitations/heart racing pulm - mild THOMAS - chronic; chronic cough; chronic sputum ("gets it in the throat"); no dyspnea at rest GI - bloating, pain, nausea but no vomiting; no flatus, no stool since surgery on 07/06 - geiger in place; hematuria resolved; catheter working well with good UOP yesterday ("Filled twice completely yesterday") musculo - arthralgias for 2-3 days endo - denies diabetes skin - rash - mild, on b/l forearms neuro - no headache or focal motor weakness psych - has felt confused last 2-3 days Physical Exam Physical Exam: gen - morbidly obese, looks ill, poor recall; but awake/alert eyes - PERRL, about 2mm b/l HENT - mouth with dry MM, no lesions neck - no JVD, no lymph nodes heart - RRR, s1 s2, no murmur lungs - mild dry rales R base, otherwise CTA b/l; no wheezes or increased work of breathing abd - distended, tympanic to percussion, BS+ but decreased; tender left side of abdomen particularly the LLQ; suprapubic pain as well; mild erythema extending from the umbilicus and inferiorly to the waistline; mildly warm to touch; no guarding ext - no edema, pulses b/l feet 1-2+ skin - mild faint erythematous maculopapular rash b/l forearms; mild erythema on lower midline abdominal wall as above neuro - no facial droop; strength 5/5 x 4 exts; DTRs 1+ b/l upper & lower exts psych - awake, alert, slight confusion & poor recall noted Results & Data Results & Data Vital Signs (Past 12 Hours) Vital Signs Temp Pulse Resp BP Pulse Ox O2 Del Method O2 Flow Rate 07/09/24 11:48 72 07/09/24 11:00 94 Nasal Cannula 2 07/09/24 10:42 89 L Room Air 07/09/24 10:18 37.2 C 78 20 155/87 H 92 Room Air Laboratory Results Laboratory Results - last 24 hr 07/09/24 07/09/24 07/09/24 10:43 10:49 Unknown WBC 11.94 H RBC 5.83 Hgb 15.1 POC Hgb 16.7 Hct 46.9 POC Hct 49 MCV 80.4 MCH 25.9 MCHC 32.2 RDW Std Deviation 46.8 H RDW Coeff of Jennifer 17.1 H Plt Count 255 MPV 10.1 Immature Gran % (Auto) 1.2 Neut % (Auto) 85.1 Lymph % (Auto) 5.7 Brewster % (Auto) 7.5 Eos % (Auto) 0.1 Baso % (Auto) 0.4 Neut # (Auto) 10.17 H Lymph # (Auto) 0.68 L Brewster # (Auto) 0.89 H Eos # (Auto) 0.01 Baso # (Auto) 0.05 Immature Gran # (Auto) 0.14 POC Sodium 139 Sodium 138 POC Potassium 4.4 Potassium 4.4 POC Chloride 107 Chloride 106 Carbon Dioxide 21 POC Total CO2 19 L Anion Gap 11 POC Anion Gap 18.0 POC BUN 41 H BUN 43 H Creatinine 2.94 H POC Creatinine 3.3 H Est Cr Clr Drug Dosing 26.2 eGFR 21.65 BUN/Creatinine Ratio 14.6 Glucose 129 H POC Glucose (other) 126 H Calcium 9.6 POC Ioniz Calcium Mika 1.17 Total Bilirubin 0.7 AST 16 ALT 7 Alkaline Phosphatase 100 Total Protein 8.2 Albumin 4.1 Globulin 4.1 H Albumin/Globulin Ratio 1.0 Lipase 10 L Procalcitonin 0.34 Urine Color Dark Yellow Urine Appearance Cloudy A Urine pH 5.5 Ur Specific [place] 1.023 Urine Protein 3+ H Urine Glucose (UA) Negative Urine Ketones 1+ H Urine Blood 3+ H Urine Nitrite Positive A Urine Bilirubin 1+ H Urine Urobilinogen Negative Ur Leukocyte Esterase 2+ H Urine WBC (Auto) >50 H Urine RBC (Auto) >20 H U Hyaline Cast (Auto) 0-2 U Epithel Cells (Auto) 0-2 Urine Bacteria (Auto) None Seen Urine Comment Adenovirus (PCR) Pending B. pertussis DNA (PCR) Pending B.parapertussis DNA PCR Pending C. pneumoniae DNA (PCR) Pending Coronavirus OC43 (PCR) Pending Coronavirus HKU1 (PCR) Pending Coronavirus 229E (PCR) Pending SARS-CoV-2 (PCR) Pending Coronavirus NL63 (PCR) Pending Human Metapneumovir PCR Pending Influenza Type B (PCR) Pending M. pneumoniae (PCR) Pending Parainfluenza 1 (PCR) Pending Parainfluenza 2 (PCR) Pending Parainfluenza 3 (PCR) Pending Parainfluenza 4 (PCR) Pending RSV (PCR) Pending Entero/Rhino (PCR) Pending Diagnostic Findings Abdomen/Pelvis CT 07/09/24 10:53 CT OF THE ABDOMEN AND PELVIS WITHOUT CONTRAST CLINICAL HISTORY: L>R lower ab pain; recent uro procedure COMPARISON STUDY: CT of the abdomen and pelvis July 07, 2024. TECHNIQUE: Axial images of the abdomen and pelvis were obtained without IV contrast. Images were reviewed in the axial, sagittal, and coronal planes. Automated exposure control was utilized for the study. A dose lowering technique was utilized adhering to the principles of ALARA. FINDINGS: An irregular 9.1 cm right lower lobe opacity is similar to CT of July 07, 2024. No pneumatosis or portal venous gas is present. There is hepatic steatosis. Peripherally calcified 6.2 x 5.1 cm lesion adjacent to the right adrenal gland is again noted. Spleen, adrenal glands and pancreas are unremarkable on unenhanced exam. There is colonic diverticulosis without evidence for acute diverticulitis. There is no evidence for a bowel obstruction. There is mild gaseous distention of the colon, slightly increased since prior examination. Prostate is enlarged, measuring 5.7 cm in transverse diameter. A Geiger has been placed in the interim. Bladder is collapsed. There is a small amount gas within the bladder. Extensive extraperitoneal gas, predominantly within the space of Retzius, is similar to CT of July 07, 2024. Associated right retroperitoneal gas is also similar to prior exam. Associated fluid within the space of Retzius has decreased in amount. No definite pneumoperitoneum. Left ureteral stent remains in place. There is no hydronephrosis. There are no ureteral calculi. Bilateral renal calculi are again noted. IMPRESSION: 1. Extensive extraperitoneal and right retroperitoneal gas, similar to CT of July 07, 2024. Associated extraperitoneal fluid has decreased since prior exam. The findings suggest extraperitoneal bladder rupture. 2. Interval placement of a Geiger catheter. 3. Left ureteral stent in place. No hydronephrosis. No ureteral calculi. Bilateral nephrolithiasis. 4. Mild gaseous distention of the colon without evidence for a bowel obstruction. This may represent an ileus. 5. Colonic diverticulosis. 6. Additional findings, as described above. These are unchanged since prior CT. ACT 112: Negative or not required by law. Electronically signed by: Garland Quan M.D. 07/09/2024 11:37 AM Chest X-Ray 07/09/24 10:54 XR chest 1V portable CLINICAL HISTORY: low sats COMPARISON STUDY: 08/19/2023 FINDINGS: There is stable prominent cardiomegaly with increased pulmonary vascular congestion. There is increased stranding opacity in the lung bases with partial obscuration of the diaphragm. No pleural effusion or pneumothorax. Stable scoliosis. IMPRESSION: 1. CHF. 2. Atelectasis versus pneumonia in the lung bases. ACT 112: Negative or not required by law. Electronically signed by: Norbert Murray M.D. 07/09/2024 11:13 AM Code Status & VTE Plan Code Status DNR/DNI per his wishes PG Care Time/CCT Total # of Minutes Spent Total Time Spent with Patient: Total time spent is greater than 50% in coordination of care (as documented) at patient's floor/unit and/or counseling patient: Coding Level of Care Code 29533 INT INP/OBS CARE 3/75MIN Diagnoses Extraperitoneal bladder perforation N32.89 MAU (acute kidney injury) N17.9 Ileus K56.7 Complicated UTI (urinary tract infection) N39.0 Peritonitis K65.9 Acute metabolic encephalopathy G93.41 Hypoxia R09.02 Kidney stones N20.0 Peripheral vascular disease I73.9 Hyperlipidemia E78.5 Thoracic aortic aneurysm (TAA) I71.20 Hypertension I10 [address] R93.89
[2024-07-09 12:27] LABS: Appearance Urine Cloudy (Clear); Bacteria Urine Automated None Seen (None Seen); Bilirubin Urine 1+ (Negative); Blood Urine 3+ (Negative); Cast Urine Automated 0-2 /lpf (0-2); Color Urine Dark Yellow; Epithelial Cell Urine Auto 0-2 /hpf (0-2); Glucose Urine UA Negative (Negative); Ketones Urine 1+ (Negative); Leukocyte Esterase Urine 2+ (Negative); Nitrite Urine Positive (Negative); Protein Urine 3+ (Negative); RBC Urine Automated >20 /hpf (0-2); Specific Gravity Urine 1.023 (1.000-1.030); Urobilinogen Urine Negative (Negative); WBC Urine Automated >50 /hpf (0-5); pH Urine 5.5 (4.5-7.5)
[2024-07-09] MEDS: cefTRIAXone SODIUM 2,000 MG/50 ML BAG IV STA (12:57)
[2024-07-09] MEDS: LACTATED RINGER'S 1,000 ML IV SCH (13:31)
[2024-07-09 14:12] LABS: Adenovirus PCR Not Detected (NotDetected); Bordetella parapertussis PCR Not Detected (NotDetected); Bordetella pertussis PCR Not Detected (NotDetected); Chlamydia pneumoniae PCR Not Detected (NotDetected); Coronavirus 229E PCR Not Detected (NotDetected); Coronavirus CoV-2 (COVID19)PCR Not Detected (NotDetected); Coronavirus HKU1 PCR Not Detected (NotDetected); Coronavirus NL63 PCR Not Detected (NotDetected); Coronavirus OC43PCR Not Detected (NotDetected); Human Metapneumovirus PCR Not Detected (NotDetected); Influenza A PCR Not Detected (NotDetected); Influenza B PCR Not Detected (NotDetected); Mycoplasma pneumoniae PCR Not Detected (NotDetected); Parainfluenza Virus 1 PCR Not Detected (NotDetected); Parainfluenza Virus 2 PCR Not Detected (NotDetected); Parainfluenza Virus 3 PCR Not Detected (NotDetected); Parainfluenza Virus 4 PCR Not Detected (NotDetected); Respiratory Syncytial VirusPCR Not Detected (NotDetected); Rhinovirus/Enterovirus PCR Not Detected (NotDetected)
--- NOTE | 2024-07-09 14:21 | Urology Consultation ---
Date of Consultation July 09, 2024 Assessment & Plan (1) Extraperitoneal bladder perforation: 73-year-old male who follows with urology for nephrolithiasis and bladder stones. He is status post cystoscopy with laser cystolitholapaxy and left ureteronephroscopy, laser destruction of stone, basket extraction of the stone and insertion of left ureteral stent on 07/06/[address] Fuentes. He presented to the emergency department today for continued abdominal pain, nausea, distention. CT abdomen pelvis again redemonstrated extraperitoneal bladder rupture with slight improvement. Patient is currently afebrile and hemodynamically stable - currently on 2L 02 Lab work reviewedcreatinine 2.94 WBC 11.94, Hbg 15.1 CT abd pelvis findings suggestive of extraperitoneal bladder rupture with slight improvement, also findings of ileus Continue Ceron catheter now for management of extraperitoneal bladder rupture Today's urine culture is currently pending -previous urine culture on 07/07/2024 with no growth Currently on broad spectrum antibiotics -trend according to culture data Will order STAT CT pelvis w/o + cystogram -further recommendations pending results No acute surgical intervention at this time Elevated serum creatinine is liekly secondary to urinary leak -continue to trend labs Patient has erythematous area along his pannus, currently demarcated, monitor size Other medical management and pharmacological care per primary team Plan of care reviewed and discussed with Dr. Fuentes Urology will follow Attending note: Patient independently assessed, examined, interviewed, and evaluated. Patient largely complaining of bowel related discomfort and issues with bowel movements. Has been tolerating catheter. Major issue initially was inability to void. On presentation patient found to have signs concerning for possible extraperitoneal bladder injury. Patient had catheter placed he states that since Saturday he has not had any episodes of bleeding. Overall has had drastic improvement of his symptoms from the bladder standpoint. Has been tolerating catheter otherwise. Had extremely large stone burden within the left renal pelvis considerably more than what was initially seen on imaging. Patient had developed a staghorn stone involving a majority of the kidney including the upper and lower pole segments. Additionally had additional stones. Patient had approximately 2.6 cm stone in the base of the bladder that was treated with the laser. No significant injury or other findings were discovered after the stone treatment. The bladder stones were treated first and the bladder was thoroughly inspected afterwards. Patient did develop issues with hematuria after procedure. Developed significant retention and likely developed injury secondary to severe overdistention with retention. Patient found to have what appeared to be air in the space of Retzius. No sign of abscess formation. Patient has not had significant white count has not had any fevers. Had mild elevation of white count to 11.94. Patient's creatinine had been significantly elevated when first presented. Has decreased slightly. Did discuss with patient as well as hospitalist team and emergency providers that this is likely related to reabsorption of urine from the space of Retzius. Will likely improve with time. Left renal stent does continue to appear to be in good position. Repeat CT examination shows the catheter in good position. No significant clot or debris seen on imaging. Persistent air within the space of Retzius. Agree with note as above. Patient's vitals and labs were all reviewed. Pertinent values in the HPI and plan section. Imaging was reviewed interpreted by myself. See note as above. Based on the irregularities as well as the somewhat unusual presentation and current bothersome symptoms largely relating to the bowel did discuss further evaluation with cystogram to determine exactly extent of possible bladder injury. Patient underwent CT cystogram. This was completed by the ER. The radiology department and ER were coordinated by ourselves in order to accomplish the imaging. Imaging was reviewed and interpreted by myself. On imaging patient appears to have injury of the anterior bladder with contrast seen in the space of Retzius. No contrast seen within the intraperitoneal cavity. Bladder capacity appears to be small with signs of significant thickening of the bladder wall. No findings of major abnormality or other issue. Stent did appear to remain in good position. Ceron catheter appeared to remain in good position within the lumen of the bladder. Otherwise, agree with read. Vitals were reviewed. Discussed findings extensively with patient and family. Reviewed with nurse practitioner as well as consulting physicians/team. Patient's complicated medical and surgical history was reviewed and summarized above. Patient has extraperitoneal bladder injury with Ceron catheter in good position and no significant hematuria. Recommendations are likely to maintain catheter for likely 14 days. Initially was going to attempt removal in a week however with findings on current cystogram as well as other ongoing issues would recommend longer time for healing. Will likely need to consider timing of cystogram to repeat assessment and to confirm healing. Will likely need broad-spectrum antibiotic coverage. Patient also previously had issues with some hypoxia. Is currently on IV antibiotics. Agree with plans for monitoring. Patient also has been dealing with significant issues likely related to ileus likely due to combination of issues with anesthesia and decreased mobility after surgery. Recommend bowel management with hospitalist team. Also patient should be able to initiate heparin therapy as currently the urine is completely clear with no signs of hematuria. Patient's surgical, medical, social, and family history were all reviewed with pertinent values as above. Discussed patient's current diagnosis as well as concerns and issues. Reviewed different options moving forward. Discussed potential risks and benefits as well as possible options and concerns. Did discuss extensively with patient possible options for intervention depending on potential issues. Did discuss possibility of abscess formation. This appears to be ruled out with the CT cystogram. At this point would recommend conservative measures with supportive care broad- spectrum antibiotics IV fluids and close monitoring. Reviewed potential surgical options and interventions. Discussed potential issues and concerns related to intervention. Risk and benefits were discussed extensively with patient and any available family. Discussed potential risks related to anesthesia. Discussed risks of bleeding infection and injury. Patient's complicated medical and surgical history is reviewed and summarized above all imaging was reviewed interpreted by myself all labs and vitals were reviewed with pertinent positive negatives in the HPI or plan section. Will monitor plan to maintain catheter and plan for reassessment after completion of course of antibiotics and time for healing. Continue with supportive care for ileus and bowel related issues and constipation. History of Present Illness Reason for Consultation: extraperitoneal bladder rupture Requesting Physician: Dr. Gonzalez History of Present Illness 73-year-old male who follows with urology for kidney stones. He is status post cystoscopy with laser cystolitholapaxy and laser fulguration of prostatic varicosity. Left ureteronephroscopy, laser destruction of stone, basket extraction of the stone and insertion of left ureteral stent on 07/06/[address] Fuentes. Surgery was done due to large left-sided staghorn stone. He was seen in the ED on 07/07/2024 due to inability to void and was found to have a bladder perforation into the extraperitoneal space. A Ceron catheter was placed. He left AMA as they had recommended admission due to being hypoxic. Today he presents back to the ED for abdominal pain, nausea, distention, new confusion. He has not had a bowel movement since prior to his surgery. He is currently hemodynamically stable on room air although he has required 2 L of oxygen since being in the ER. CT A/P 07/09/2024 Extensive extraperitoneal and right retroperitoneal gas, similar to CT of July 07, 2024. Associated extraperitoneal fluid has decreased since prior exam. The findings suggest extraperitoneal bladder rupture. Interval placement of a Ceron catheter. Left ureteral stent in place. No hydronephrosis. No ureteral calculi. Bilateral nephrolithiasis. Mild gaseous distention of the colon without evidence for a bowel obstruction. This may represent an ileus. Urology is reconsulted due to continued abdominal pain and CT findings. He is currently being admitted due to hypoxia along with extraperitoneal bladder perforation. Patient seen and examined at bedside in the emergency department with Dr. Fuentes. He came in due to abdominal pain and distention. Admits to not having a bowel movement for several days. He says catheter has been draining appropriately, he did have gross hematuria in the catheter after placement. Denied fever, chills, nausea, vomiting. Allergies Allergy/AdvReac Type Severity Reaction Status Date / Time No Known Allergies Allergy Verified 07/06/24 08:07 Home Medications Medication Instructions Recorded Confirmed Type atenolol 50 mg tablet 50 mg PO QPM 11/12/19 07/09/24 History aspirin-caffeine 500 mg-32.5 mg 1 tab PO DAILY PRN Pain 08/07/22 07/09/24 Histo ry tablet (Soraya Back and Body) aspirin 81 mg tablet,delayed 81 mg PO QPM 11/28/23 07/09/24 History release (Adult Low Dose Aspirin) omega 0-uqt-bga-fish oil 60 mg-90 1 cap PO QPM 11/28/23 07/09/24 History mg-500 mg capsule (Fish Oil) dandelion root 525 mg capsule 525 mg PO QPM 06/26/24 07/09/24 History phenazopyridine 200 mg tablet 200 mg PO Q8H PRN pain #10 tabs 07/06/24 07/09/24 Rx (Pyridium) tamsulosin 0.4 mg capsule 0.4 mg PO HS #30 caps 07/06/24 07/09/24 Rx cephalexin 500 mg capsule 500 mg PO Q6H 7 days #28 caps 07/07/24 07/09/24 Rx Patient History Medical History Bladder stone s/p removal 07/06/24 (Dr Tj Fuentes) Carotid artery disease mild Hx of peripheral vascular disease Hx of hyperlipidemia Hx of coronary artery disease Chronic kidney disease with active medical management without dialysis, stage 3 (moderate) [facility] [place] [facility] - Dr. Saul Thoracic aortic aneurysm (TAA) 4.9cm Hx of scoliosis Hx of renal calculi left staghorn calculus - s/p lithotripsy - 07/06/24 (Dr Tj Fuentes) Hypertension History of asthma no current meds Melanoma in situ hx-removed; left foot - 2023 - Dr Michela Lott, [facility] [place] Surgical History Status post laser lithotripsy of ureteral calculus - Dr Tj Fuentes History of cataract surgery rt/lt Hx of melanoma excision Hx of basal cell carcinoma excision H/O umbilical hernia repair S/P appendectomy S/P colonoscopy Family History Father , age 101 Kidney stones Myocardial infarction Family/Other Kidney stones Mother , age 65 Aortic aneurysm Social History Smoking Status: Former smoker Tobacco Type: Cigarettes Smoking End Date: early ; smoked for 10-15 years; Second Hand Exposure: No; Do You Dip or Chew Tobacco: No; Tobacco Cessation Education Requested by Patient: No Hx Alcohol Use: No Hx Substance Use: No Preferred Language: Gabonese Communication Ability: Effective Visual Impairment: No Limitations Hearing Ability: Normal Furs Salesperson Required: No Beliefs That Will Affect Care: None marital status: Single Current Living Situation: Alone Current Living Situation Comment: [place] current occupational status: retired 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 Any pertinent positives and/or negatives are listed in the history of present illness section. Constitutional: as per Subjective / HPI Genitourinary: + as per Subjective / HPI Physical Exam Physical Exam: General: Alert and oriented x 3 in no acute distress. Morbid obesity HEENT: Normocephalic Atraumatic. Inspection normal. Cranial Nerves 2-12 Grossly intact. Nares are clear. Neck is supple. Normal inspection of face. Normal inspection of neck. Neurologic: No deficits on inspection. Baseline for motor function and sensory. Psychologic: Normal affect. Respiratory: Nonlabored. No use of accessory muscles. No tachypnea or dyspnea. Cardiovascular: No tachycardia Skin: [place] and Dry. No rashes or visible lesions. Extremities: Moving without issues. No motor deficits on inspection Lymphatics: No edema Abdomen: Obese abdomen with severely distended appearance. No severe pain or discomfort. Mild erythema in the infra umbilical region/along the pannus. No rebound or guarding. : Creon catheter in place draining dark yellow urine with no sign of blood clot or debris. Constitutional: no acute distress Morbid obesity. Chronically ill-appearing Respiratory: normal respiratory effort and able to speak in complete sentences Gastrointestinal (Abdomen): Inspection/Auscultation: + abdomen distended Skin: Patient has erythematous area along his pannus, currently demarcated Psychiatric: Orientation: alert and oriented x 3 Results & Data Vital Signs (Past 12 Hours) Vital Signs Temp Pulse Pulse Resp BP BP Pulse Ox 07/09/24 13:04 64 20 124/72 98 07/09/24 11:48 72 07/09/24 11:00 94 07/09/24 10:42 89 L 07/09/24 10:18 37.2 C 78 20 155/87 H 92 O2 Del Method O2 Flow Rate 07/09/24 13:04 Room Air 07/09/24 11:48 07/09/24 11:00 Nasal Cannula 2 07/09/24 10:42 Room Air 07/09/24 10:18 Room Air PG Care Time/CCT Total # of Minutes Spent Total Time Spent with Patient: Total time spent is greater than 50% in coordination of care (as documented) at patient's floor/unit and/or counseling patient: Coding Level of Care Code 39357 INT INP/OBS CARE 3/75MIN Medical Decision Making High Complexity Diagnoses Extraperitoneal bladder perforation N32.89
[2024-07-09] MEDS: PIPERACILLIN/TAZOBACTAM 4.5 GM/100 ML BAG IV ONE (14:51)
[2024-07-09] MEDS: DAPTOmycin 500 MG in SYRINGE 0 ML IV STA (14:52)
--- NOTE | 2024-07-09 15:46 | CT Scan Report ---
CT pelvis wo/w con CLINICAL HISTORY: Cystogram TECHNIQUE: CT scan of the pelvis was obtained. Then contrast was instilled into the urinary bladder v ia the Ceron catheter and the CT scan was repeated. COMPARISON STUDY: CT scan earlier today FINDINGS: There is a perforation of the anterior wall of the urinary bladder mid aspect near the midl ine measuring 7 mm axial diameter by 12 mm craniocaudad, axial series 5 image 122, coronal series 500 image 88, and sagittal series 501 image 110. There is anterior extravasation of contrast through the defect into the space of Retzius. The contrast flows anteriorly and inferiorly and anteriorly and [place] periorly from the leak site. The anterior gas locules are stable. The Ceron catheter is well position ed and the distal aspect of the left ureteral stent is well-positioned. IMPRESSION: Perforation and leak at the anterior wall of the urinary bladder as described. ACT 112: Negative or not required by law. Electronically signed by: Norbert Murray M.D. 07/09/2024 3:44 PM
[2024-07-09] MEDS ORDERED: MoRPHine SULFATE 2 MG/ML CARP IV PRN (15:48)
[2024-07-09] MEDS ORDERED: MELATONIN 3 MG TAB PO PRN (15:48)
[2024-07-09] MEDS ORDERED: ONDANSETRON INJ 2 MG/ML 2 ML VIAL IV PRN (15:48)
[2024-07-09] MEDS ORDERED: NITROGLYCERIN SL 0.4 MG/TAB TAB SL PRN (15:48)
--- NOTE | 2024-07-09 17:01 | Pulmonary Consultation ---
Date of Consultation July 09, 2024 Assessment & Plan (1) Abnormal chest CT: (2) Pulmonary sequestration: (3) Ex-smoker: Plan CT chest 08/19/2023 personally reviewed: Focal emphysematous as well as bronchiectatic changes appreciated in the right lower lobe Right lower lobe 10.2 x 4.9 cm opacity with central calcification, unchanged 07/18/2023 No significant mediastinal lymphadenopathy -- Abnormal chest CT Patient seems to have focal bronchiectasis and emphysema of the right lower lobe with consolidative changes/scarring It was present at least since 07/18/[address] abdomen pelvis It has remained stable during this interval. 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 Patient also has history of trauma at the age of 5 where he had collapsed lung and hematemesis at that time. He is not sure of interventions taken place at that time but that could also be one of the factors for the abnormal finding I do not see any signs of pulmonary pneumonia and do not feel patient needs antibiotics aimed for pulmonary source. Treatment for symptomatic sequestration is usually surgery as it can cause infections. Given the patient is asymptomatic when it comes to the lung I think it is reasonable not to be aggressive about it. 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 Treatment for symptomatic sequestration is usually surgery as it can cause infections. Given the patient is asymptomatic when it comes to the lung I think it is reasonable not to be aggressive about it. Patient is supposed to see a experience planning strategist at [place] in the recent future. Encouraged to continue with appointment Do recommend outpatient polysomnography Would recommend to keep O2 saturation between 90-92%, do not order oxygen with the patient Be careful when giving sedating medication. If the patient has hypoxic while sleeping CPAP could be given a trial. Case was discussed with primary team and RN No further recommendation from pulmonary perspective, will sign off Please call directly with any questions I spent more than 75 minutes looking in the chart, images, discussing the plan of care with the patient, RN as well as primary team Please note the above document was generated using voice recognition software. It may contain grammatical, syntax or spelling errors.Any formal questions or concerns about the content, text or information contained within the body of this dictation should be directly addressed to the provider for clarification. History of Present Illness Attending Physician: Jerry Dennis MD History of Present Illness 73-year-old male was admitted to the hospital for abdominal pain was found to have bladder rupture Past medical history: Hypertension, kidney/bladder stone, thoracic aortic aneurysm Pulmonary consulted for abnormal chest CT. At the time of examination patient was resting comfortably on the bed. He was awake alert oriented answering all the questions appropriately He denies any issues when it comes to his breathing He says he is able to do his day-to-day activities and even exert himself without any significant shortness of breath Periodic cough with clear phlegm. Denies any hemoptysis He is unsure if he snores at night. Denies any witnessed apneic episodes at night. His abdominal pain is much better controlled after he got pain medications post OR. No history of trauma to the right side of the chest in the recent past As per the patient he did have a fall back when he was 5 years old when he had punctured lung he is unsure which side, he also had hematemesis at that time and required blood transfusion He also states that he had a CAT scan approximately 14-15 years ago when he was told that he has an opacity in the right lower lobe. Social history: Approximately 50-[id number]-[id number] smoking history, quit in the 1980s. Allergies Allergy/AdvReac Type Severity Reaction Status Date / Time No Known Allergies Allergy Verified 07/06/24 08:07 Home Medications Medication Instructions Recorded Confirmed Type atenolol 50 mg tablet 50 mg PO QPM 11/12/19 07/09/24 History aspirin-caffeine 500 mg-32.5 mg 1 tab PO DAILY PRN Pain 08/07/22 07/09/24 History tablet (Soraya Back and Body) aspirin 81 mg tablet,delayed 81 mg PO QPM 11/28/23 07/09/24 History release (Adult Low Dose Aspirin) omega 5-uyd-ecu-fish oil 60 mg-90 1 cap PO QPM 11/28/23 07/09/24 History mg-500 mg capsule (Fish Oil) dandelion root 525 mg capsule 525 mg PO QPM 06/26/24 07/09/24 History phenazopyridine 200 mg tablet 200 mg PO Q8H PRN pain #10 tabs 07/06/24 07/09/24 Rx (Pyridium) tamsulosin 0.4 mg capsule 0.4 mg PO HS #30 caps 07/06/24 07/09/24 Rx cephalexin 500 mg capsule 500 mg PO Q6H 7 days #28 caps 07/07/24 07/09/24 Rx Patient History Medical History Bladder stone s/p removal 07/06/24 (Dr Tj Fuentes) Carotid artery disease mild Hx of peripheral vascular disease Hx of hyperlipidemia Hx of coronary artery disease Chronic kidney disease with active medical management without dialysis, stage 3 (moderate) [facility] [place] [facility] - Dr. Saul Thoracic aortic aneurysm (TAA) 4.9cm Hx of scoliosis Hx of renal calculi left staghorn calculus - s/p lithotripsy - 07/06/24 (Dr Tj Fuentes) Hypertension History of asthma no current meds Melanoma in situ hx-removed; left foot - 2023 - Dr Michela Lott, [facility] Surgical History Status post laser lithotripsy of ureteral calculus - Dr Tj Fuentes History of cataract surgery rt/lt Hx of melanoma excision Hx of basal cell carcinoma excision H/O umbilical hernia repair S/P appendectomy S/P colonoscopy Family History Father , age 101 Kidney stones Myocardial infarction Family/Other Kidney stones Mother , age 65 Aortic aneurysm Social History Smoking Status: Former smoker Tobacco Type: Cigarettes Smoking End Date: early ; smoked for 10-15 years; Second Hand Exposure: No; Do You Dip or Chew Tobacco: No; Tobacco Cessation Education Requested by Patient: No Hx Alcohol Use: No Hx Substance Use: No Preferred Language: Singaporean Communication Ability: Effective Visual Impairment: No Limitations Hearing Ability: Normal Galley Hand Required: No Beliefs That Will Affect Care: None marital status: Single Current Living Situation: Alone Current Living Situation Comment: [place] current occupational status: retired 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 How many Children do You have: 0 Other Information That Helps Us Care for You: No Feels Safe at Home: Yes Safety Concerns: Feels Safe At This Time Diet: regular caffeine: Yes Physical Activity Frequency: Does not Exercise Do you think of yourself as: straight/heterosexual Gender Identity: Male Assistive Devices: None Review of Systems 2 Review of Systems: All systems reviewed & are unremarkable except as noted in HPI & below Physical Exam 2 Physical Exam: Constitutional: No acute distress HEENT: EOMI, PERRLA, short thick neck Respiratory system: Good air entry bilaterally, no wheeze, rhonchi, minimal crackles bilateral lower lobe CVS: S1-S2 positive, no murmurs or gallops Abdomen: Soft, nontender, nondistended, positive bowel sounds x4, obese Extremities: +2 pulses bilaterally radialis/ dorsalis pedis, no cyanosis, +1 pitting edema bilateral lower extremity Neuro: Awake alert oriented x3 Psych: Normal mood and affect G/U: Positive Ceron Skin: no rashes, warm and dry Lymphatic: no cervical or axillary lymphadenopathy Results & Data Results & Data Vital Signs (Past 12 Hours) Vital Signs Temp Pulse Pulse Resp BP BP Pulse Ox 07/09/24 16:47 64 07/09/24 15:56 36.4 C L 66 16 154/81 H 97 07/09/24 14:46 61 18 127/74 96 07/09/24 13:04 64 20 124/72 98 07/09/24 11:48 72 07/09/24 11:00 94 07/09/24 10:42 89 L 07/09/24 10:18 37.2 C 78 20 155/87 H 92 O2 Del Method O2 Flow Rate 07/09/24 16:47 07/09/24 15:56 Room Air 2 07/09/24 14:46 Nasal Cannula 2 07/09/24 13:04 Nasal Cannula 2 07/09/24 11:48 07/09/24 11:00 Nasal Cannula 2 07/09/24 10:42 Room Air 07/09/24 10:18 Room Air Laboratory Results 07/09/24 10:43 07/09/24 10:43 PG Care Time/CCT Total # of Minutes Spent Total Time Spent with Patient: Total time spent is greater than 50% in coordination of care (as documented) at patient's floor/unit and/or counseling patient: [place] [address] INT INP/OBS CARE 3/75MIN Patient Type New Diagnoses Abnormal chest CT R93.89 Pulmonary sequestration Q33.2 Ex-smoker Z87.891
[2024-07-09] MEDS: FAMOTIDINE 20MG IV PUSH 20 MG/5 ML SYR IV SCH (17:10)
[2024-07-09] MEDS: OPTIRAY 320 100ml IV ONE (17:10)
[2024-07-09] MEDS: PIPERACILLIN/TAZOBACTAM 4.5 GM/100 ML BAG IV SCH (20:54)
[2024-07-09] MEDS: ACETAMINOPHEN 1,000 MG/100 ML VIAL IV PRN (20:57)
[2024-07-09] MEDS: TAMSULOSIN HCL 0.4 MG CAP PO SCH (21:23)
--- NOTE | 2024-07-10 00:54 | Communication Note ---
Date of Service: July 10, 2024 I was notified by nursing staff that the patient had sensation that he had to urinate but his Ceron catheter was not draining and urine was merely leaking a round the catheter. Nursing staff deflated the Ceron balloon and reposition the Ceron catheter and reinflated the balloon without any avail to the patient's symptoms. I presented to the patient's bedside and gently flushed and irrigated the patient's catheter. With this maneuver I was able to obtain some debris that was likely causing the the Ceron catheter to be clogged. I gently flushed and irrigated the Ceron catheter until no further debris was obtained. The patient noted marked symptomatic relief and his Ceron catheter appear to be draining clear yellow urine after this maneuver. Instructions were left with nursing staff that they could gently flush and irrigate the catheter if this recurs.
[2024-07-10 06:30] LABS: Basophils # (auto) 0.04 K/uL (0.00-0.20); Basophils % (auto) 0.5 %; Eosinophils # (auto) 0.18 K/uL (0.00-0.50); Eosinophils % (auto) 2.1 %; Hematocrit (blood only) 41.1 % (42.0-52.0); Hemoglobin 13.2 g/dl (14.0-18.0); Immature Granulocytes # (auto) 0.07 K/uL (0.01-0.20); Immature Granulocytes % (auto) 0.8 %; Lymphocytes # (auto) 0.89 K/uL (1.20-3.40); Lymphocytes % (auto) 10.6 %; Mean Corpuscular Hemoglobin 25.9 pg (25.0-34.0); Mean Corpuscular Hgb Conc 32.1 g/dL (32.0-36.0); Mean Corpuscular Volume 80.7 fL (80.0-100.0); Mean Platelet Volume 10.2 fL (9.4-12.4); Monocytes # (auto) 0.81 K/uL (0.11-0.59); Monocytes % (auto) 9.6 %; Neutrophils # (auto) 6.41 K/uL (1.40-6.50); Neutrophils % (auto) 76.4 %; Platelet Count 207 K/uL (130-400); RDW Standard Deviation 47.4 fL (36.4-46.3); Red Blood Count 5.09 M/uL (4.70-6.10)
[2024-07-10 06:53] LABS: Creatinine Clr Calc Pharmacy 52.5 ml/min
[2024-07-10 07:41] LABS: Magnesium 2.2 mg/dl (1.7-2.4)
[2024-07-10] MEDS: HEPARIN SOD 5,000 UNIT/0.5 ML VIAL SQ SCH (08:51)
--- NOTE | 2024-07-10 09:09 | Urology Progress Note ---
Date of Service July 10, 2024 Assessment & Plan (1) MAU (acute kidney injury): (2) Bladder rupture: Plan He is status post cystoscopy with laser cystolitholapaxy and left ureteronephroscopy, laser destruction of stone, basket extraction of the stone and insertion of left ureteral stent on 07/06/[address] Fuentes. He presented to the emergency department 07/09/2024 for continued abdominal pain, nausea, distention. CT abdomen pelvis again redemonstrated extraperitoneal bl adder rupture with slight improvement. Patient is currently afebrile and hemodynamically stable Lab work reviewedcreatinine 1.5 WBC 8.4, Hbg 13.2 urine culture is currently pending -previous urine culture on 07/07/2024 with no growth Currently on broad spectrum antibiotics -trend according to culture data CT without with cystogram showed appearance of an anterior bladder injury with contrast seen the space f Retzius, no contrast within the intraperitoneal cavity. Bladder capacity appears small with signs of thickening of the bladder wall. Stent appeared in good position. Ceron catheter. appeared in good position. Continue Ceron catheter now for management of extraperitoneal bladder rupture- May hand irrigate lightly for any sediment/stone debris No acute surgical intervention at this time Patient has erythematous area along his pannus, currently demarcated, without increase in size overnight- continue to monitor Other medical management and pharmacological care per primary team We will arrange outpatient follow-up- 14 days with catheter with repeat CT pelvis w/o with cystogram prior to appointment Plan of care reviewed and discussed with Dr. Fuentes Urology will s/o -please recontact/consult for any questions or concerns Admission and Anticipated Discharge Date Admission Date: July 09, 2024 Subjective Patient resting comfortably in bed Denies fevers, chills, nausea, vomiting Catheter is draining appropriately dark yellow with small sediment or stone fragments noted Did have 1 irrigation overnight He would like to be discharged today He did have a bowel movement and is now feeling significantly better Denying abdominal pain Review of Systems Constitutional: as per Subjective / HPI Genitourinary: + as per Subjective / HPI Physical Exam Physical Exam: : Ceron catheter in place draining dark yellow urine with minimal stone sediment and debris Constitutional: no acute distress and not ill appearing Morbid obesity. Chronically ill-appearing Respiratory: no respiratory distress and no labored breathing Cardiovascular: Rate/Rhythm: regular rate Gastrointestinal (Abdomen): Inspection/Auscultation: + abdomen distended Musculoskeletal: Head/Neck/Chest: normocephalic and head atraumatic Skin: Patient has erythematous area along his pannus, currently demarcated Neurologic: moves all extremities and awake Psychiatric: Orientation: alert and oriented x 3 Results & Data Vital Signs (Past 12 Hours) Vital Signs Temp Pulse Pulse Resp BP Pulse Ox O2 Del Method 07/10/24 08:11 36.6 C 74 22 173/72 H 87 L Room Air 07/10/24 03:09 36.6 C 64 18 137/71 92 Nasal Cannula 07/09/24 23:28 37.1 C 63 18 173/79 H 94 Nasal Cannula 07/09/24 23:00 60 O2 Flow Rate 07/10/24 08:11 07/10/24 03:09 2 07/09/24 23:28 2 07/09/24 23:00 PG Care Time/CCT Total # of Minutes Spent Total Time Spent with Patient: Total time spent is greater than 50% in coordination of care (as documented) at patient's floor/unit and/or counseling patient: Coding Level of Care Code 47631 SUB INP/OBS CARE 2/35MIN Diagnoses MAU (acute kidney injury) N17.9 Bladder rupture N32.89
[2024-07-10] MEDS: POLYETHYLENE (MIRALAX) 17 GM PACK PO SCH (11:34)
--- NOTE | 2024-07-10 13:45 | Hospitalist Progress Note ---
Date of Service July 10, 2024 Assessment & Plan (1) Extraperitoneal bladder perforation: (2) MAU (acute kidney injury): (3) Ileus: (4) Complicated UTI (urinary tract infection): (5) Peritonitis: (6) Acute metabolic encephalopathy: (7) Hypoxia: (8) Kidney stones: (9) Peripheral vascular disease: (10) Hyperlipidemia: (11) Thoracic aortic aneurysm (TAA): (12) Hypertension: (13) Abnormal chest CT: Plan 73yo male with history of HTN, thoracic aortic aneurysm, melanoma of left foot s/p excision 2023, and kidney stone/bladder stone who presents today from home with ongoing left-sided abdominal pain as well as suprapubic pain. Patient underwent cystoscopy with Laser Cystolitholapaxy and Laser fulguration/cauterization of prostatic varicosity, left Ureteronephroscopy, Retrograde Pyelogram, Ureteral Dilation, Laser Destruction of Stone, Basket Extraction of the Stone, Insertion of urinary stent on left by Dr Jamar Fuentes on 07/06/24. He had a large bladder stone - about 2.5cm in size - as well as a large staghorn kidney stone on the left that were treated/removed. Post-op he was discharged to home in stable condition. He was asked to take prophylactic keflex upon discharge home. Returned to the [facility] ER on 07/07/24 with complaints of abdominal pain, nausea, difficulty voiding, and hematuria. CT abd/pelvis at that time showed findings concerning for extraperitoneal bladder rupture with free air & free fluid. [facility] was consulted. He had evidence of MAU with creatinine of 3.8 thought 2nd to bladder perforation/recent surgery. Geiger catheter was placed. By report he signed out AMA as the ER attending was planning to do additional testing for hypoxia noted while in the ER that evening. overall plan UTI, bladder rupture, ileusi, MAU, hypoxic event c/w IV antibiotics and IV fluid, MAU improving clear diet for morning and then advance to [facility] for event, he should f/u with GI for colonoscopy step-2 process to determine oxygen need urology requested keep geiger in for 14 days. he's need outpatient f/u on aortic aneurysm and chronic RLL finding ileus still has distended abdomen clear diet today; and then advance as tolerate #abdominal pain - -suspect multifactorial causes including peritonitis from his bladder rupture, ?UTI, ileus, etc. -CT a/p today shows improved free fluid but still with considerable free air in the abdomen -CT also shows evidence of colonic ileus ?? UTI versus peritonitis in the form of zosyn/daptomycin, morphine prn, urology consult as below, serial exams f/u on urine culture. urology cleared for dishcarge by tomorrow, he' need the geiger remained for up to 14 days #extraperitoneal bladder rupture - -as seen initially on CT abd/pelvis on 07/07/2024 -this occurred in the setting of recent cystoscopy with considerable urological intervention of a large bladder stone, left-sided staghorn stone, stent placement on left, fulguration of varicosities, etc. -urology has been consulted -they are planning on CT cystogram to confirm ongoing bladder leak -appreciate urology consultation & management -clear diet. -continue geiger -await CT cystogram results #suspected complicated UTI - -u/a suspicious for such although no bacteria on microscopy -urine cx, blood cx's dispatched -in light of bladder rupture, recent surgery/instrumentation, peritonitis, etc --> broad spectrum IV abx with zosyn & daptomycin #peritonitis - suspected - -as above abdomen soft to touch on 07/10/2024 9am #MAU - -improving from 3.8--> 2.9---> 1.5 -c/w IV fluid #acute metabolic encephalopathy - stable. -2nd to bladder rupture, ?UTI, peritonitis, MAU, recent surgery, etc. #hypertension - -hold atenolol -cont flomax in light of urological issues #hypoxia with abnormal RLL on chest imaging - -the RLL abnormal lung findings appear chronic -patient vaguely remembers being told 10+ years ago about abnormalities in the right lower lobe -he does have chronic cough but that cough is unchanged -I have low suspicion that he has an acute process of the RLL such as a superimposed RLL pneumonia -with that said I consulted Dr Bob from Pulmonary for his opinion regarding the RLL findings -bronchogenic cyst? pulmonary sequestration? outpatient sleep studies, prior to dc, 2 step study incentive umair and aerokina device -of note - pt's chest x-ray today with "CHF" on report but he has no clinical evidence of such on examination #h/o melanoma of left foot in 2023, s/p excision - -no signs of metastatic disease/recurrent disease on imaging #thoracic ascending aortic aneurysm - -4.9cm in diameter on CT chest in 2023; he is due for repeat imaging -he will be seen at [facility] in the next few weeks as outpatient for the abnormal RLL; suspect they will repeat his chest imaging at that time and aneurysm can be rechecked then #DVT proph - -urology is ok with low-dose heparin SC - 5000 BID - starting tomorrow; ordered for 07/10 AM #morbid obesity - BMI ~40 #PAD - -patient had arterial duplex studies of both legs with ABIs at [facility] in 2023 -RITIKA on right was wnl; RITIKA on left was reduced -duplex showed mild PAD of right leg with mod-severe PAD of the LLE -he denies any recent PAD symptoms of either leg -should continue on aspirin 81mg daily -LDL was 139 earlier this month --- ideally should be on statin therapy for such; I am not aware of any statin intolerance will order PT/OT evals while here due to weakness Admission and Anticipated Discharge Date Admission Date: July 09, 2024 Subjective his urine culture still pending still need IV antibiotics ileus, started on miralax, clear diet advance as tolerate was requesting to be dc today but agreeable to stay till tomorrow spoke with urology Review of Systems Review of Systems: Constitutional: No Weight Change, No Fever, No Chills, No Night Sweats, No Fatigue, No Malaise Cardiovascular: No Chest Pain, No SOB, No PND, No Dyspnea on Exertion, No Orthopnea, No Claudication, No Edema, No Palpitations Respiratory: No Cough, No Sputum, No Wheezing, No Smoke Exposure, No Dyspnea Gastrointestinal: No Nausea, No Vomiting, No Diarrhea, No Constipation, No Pain, No Heartburn No Hematochezia, No Melena Genitourinary: no worsening dysuria Musculoskeletal: No Arthralgias, No Myalgias, No Joint Swelling, No Joint Stiffness, No Back Pain, No Neck Pain, No Injury History Neuro: No Weakness, No Numbness, No Paresthesias, No Loss of Consciousness, No Syncope, No Dizziness, No Headache, No Coordination Changes, No Recent Falls Psych: No Anxiety/Panic, No Depression, No Insomnia, No Personality Changes, No Delusions, No Rumination, No SI/HI/AH/VH, No Social Issues, No Memory Changes, No Violence/Abuse Hx., No Eating Concerns Heme/Lymph: No Bruising, No Bleeding, No Transfusions History, No Lymphadenopathy Endocrine: No Polyuria, No Polydipsia, No Temperature Intolerance Physical Exam Physical Exam: VITALS: Reviewed. WEIGHT/BMI reviewed. GEN: Healthy appearing, well-developed, NAD. -Head: NC/AT; -Eyes: PERRL, EOMI. No discharge or redn ess; -Mouth and throat: MMM. Normal gums, muc dayna, palate,. Good dentition. NECK: Supple, with no masses. CV: RRR, no m/r/g. LUNGS: CTAB, no w/r/c. ABD: Soft, NT/ND, NBS, no masses or organomegaly.; : no CVA tenerness SKIN: Warm, well perfused. No skin rashes or abnormal lesions. MSK: No deformities, Normal gait. EXT: No clubbing, cyanosis, or edema. NEURO: AAOx3. Results & Data Results & Data Vital Signs (Past 12 Hours) Vital Signs Temp Pulse Pulse Resp BP Pulse Ox O2 Del Method 07/10/24 12:11 36.6 C 79 20 138/57 L 93 Room Air 07/10/24 10:44 60 07/10/24 08:11 36.6 C 74 22 173/72 H 87 L Room Air 07/10/24 03:09 36.6 C 64 18 137/71 92 Nasal Cannula O2 Flow Rate 07/10/24 12:11 07/10/24 10:44 07/10/24 08:11 07/10/24 03:09 2 Laboratory Results Laboratory Results - last 72 hr 07/09/24 07/09/24 07/09/24 10:43 10:49 18:17 WBC 11.94 H RBC 5.83 Hgb 15.1 POC Hgb 16.7 Hct 46.9 POC Hct 49 MCV 80.4 MCH 25.9 MCHC 32.2 RDW Std Deviation 46.8 H RDW Coeff of Jennifer 17.1 H Plt Count 255 MPV 10.1 Immature Gran % (Auto) 1.2 Neut % (Auto) 85.1 Lymph % (Auto) 5.7 [place] % (Auto) 7.5 Eos % (Auto) 0.1 Baso % (Auto) 0.4 Neut # (Auto) 10.17 H Lymph # (Auto) 0.68 L [place] # (Auto) 0.89 H Eos # (Auto) 0.01 Baso # (Auto) 0.05 Immature Gran # (Auto) 0.14 POC Sodium 139 Sodium 138 POC Potassium 4.4 Potassium 4.4 POC Chloride 107 Chloride 106 Carbon Dioxide 21 POC Total CO2 19 L Anion Gap 11 POC Anion Gap 18.0 POC BUN 41 H BUN 43 H Creatinine 2.94 H POC Creatinine 3.3 H Est Cr Clr Drug Dosing 26.2 eGFR 21.65 BUN/Creatinine Ratio 14.6 Glucose 129 H POC Glucose 109 H POC Glucose (other) 126 H Calcium 9.6 POC Ioniz Calcium Mika 1.17 Magnesium Total Bilirubin 0.7 AST 16 ALT 7 Alkaline Phosphatase 100 Total Protein 8.2 Albumin 4.1 Globulin 4.1 H Albumin/Globulin Ratio 1.0 Lipase 10 L Procalcitonin 0.34 Urine Color Urine Appearance Urine pH Ur Specific [place] Urine Protein Urine Glucose (UA) Urine Ketones Urine Blood Urine Nitrite Urine Bilirubin Urine Urobilinogen Ur Leukocyte Esterase Urine WBC (Auto) Urine RBC (Auto) U Hyaline Cast (Auto) U Epithel Cells (Auto) Urine Bacteria (Auto) Urine Comment Adenovirus (PCR) B. pertussis DNA (PCR) B.parapertussis DNA PCR C. pneumoniae DNA (PCR) Coronavirus OC43 (PCR) Coronavirus HKU1 (PCR) Coronavirus 229E (PCR) SARS-CoV-2 (PCR) Coronavirus NL63 (PCR) Human Metapneumovir PCR Influenza Type A (PCR) Influenza Type B (PCR) M. pneumoniae (PCR) Parainfluenza 1 (PCR) Parainfluenza 2 (PCR) Parainfluenza 3 (PCR) Parainfluenza 4 (PCR) RSV (PCR) Entero/Rhino (PCR) 07/09/24 07/10/24 07/10/24 Unknown 00:11 05:44 WBC 8.40 RBC 5.09 Hgb 13.2 L POC Hgb Hct 41.1 L POC Hct MCV 80.7 MCH 25.9 MCHC 32.1 RDW Std Deviation 47.4 H RDW Coeff of Jennifer 16.0 H Plt Count 207 MPV 10.2 Immature Gran % (Auto) 0.8 Neut % (Auto) 76.4 Lymph % (Auto) 10.6 [place] % (Auto) 9.6 Eos % (Auto) 2.1 Baso % (Auto) 0.5 Neut # (Auto) 6.41 Lymph # (Auto) 0.89 L [place] # (Auto) 0.81 H Eos # (Auto) 0.18 Baso # (Auto) 0.04 Immature Gran # (Auto) 0.07 POC Sodium Sodium 141 POC Potassium Potassium 4.0 POC Chloride Chloride 109 H Carbon Dioxide 24 POC Total CO2 Anion Gap 8 POC Anion Gap POC BUN BUN 33 H Creatinine 1.50 H D POC Creatinine Est Cr Clr Drug Dosing 52.5 eGFR 48.55 BUN/Creatinine Ratio 22.0 H Glucose 101 H POC Glucose 119 H POC Glucose (other) Calcium 9.0 POC Ioniz Calcium Mika Magnesium 2.2 Total Bilirubin AST ALT Alkaline Phosphatase Total Protein Albumin Globulin Albumin/Globulin Ratio Lipase Procalcitonin Urine Color Dark Yellow Urine Appearance Cloudy A Urine pH 5.5 Ur Specific [place] 1.023 Urine Protein 3+ H Urine Glucose (UA) Negative Urine Ketones 1+ H Urine Blood 3+ H Urine Nitrite Positive A Urine Bilirubin 1+ H Urine Urobilinogen Negative Ur Leukocyte Esterase 2+ H Urine WBC (Auto) >50 H Urine RBC (Auto) >20 H U Hyaline Cast (Auto) 0-2 U Epithel Cells (Auto) 0-2 Urine Bacteria (Auto) None Seen Urine Comment Adenovirus (PCR) Not Detected B. pertussis DNA (PCR) Not Detected B.parapertussis DNA PCR Not Detected C. pneumoniae DNA (PCR) Not Detected Coronavirus OC43 (PCR) Not Detected Coronavirus HKU1 (PCR) Not Detected Coronavirus 229E (PCR) Not Detected SARS-CoV-2 (PCR) Not Detected Coronavirus NL63 (PCR) Not Detected Human Metapneumovir PCR Not Detected Influenza Type A (PCR) Not Detected Influenza Type B (PCR) Not Detected M. pneumoniae (PCR) Not Detected Parainfluenza 1 (PCR) Not Detected Parainfluenza 2 (PCR) Not Detected Parainfluenza 3 (PCR) Not Detected Parainfluenza 4 (PCR) Not Detected RSV (PCR) Not Detected Entero/Rhino (PCR) Not Detected 07/10/24 05:49 WBC RBC Hgb POC Hgb Hct POC Hct MCV MCH MCHC RDW Std Deviation RDW Coeff of Jennifer Plt Count MPV Immature Gran % (Auto) Neut % (Auto) Lymph % (Auto) [place] % (Auto) Eos % (Auto) Baso % (Auto) Neut # (Auto) Lymph # (Auto) [place] # (Auto) Eos # (Auto) Baso # (Auto) Immature Gran # (Auto) POC Sodium Sodium POC Potassium Potassium POC Chloride Chloride Carbon Dioxide POC Total CO2 Anion Gap POC Anion Gap POC BUN BUN Creatinine POC Creatinine Est Cr Clr Drug Dosing eGFR BUN/Creatinine Ratio Glucose POC Glucose 104 H POC Glucose (other) Calcium POC Ioniz Calcium Mika Magnesium Total Bilirubin AST ALT Alkaline Phosphatase Total Protein Albumin Globulin Albumin/Globulin Ratio Lipase Procalcitonin Urine Color Urine Appearance Urine pH Ur Specific [place] Urine Protein Urine Glucose (UA) Urine Ketones Urine Blood Urine Nitrite Urine Bilirubin Urine Urobilinogen Ur Leukocyte Esterase Urine WBC (Auto) Urine RBC (Auto) U Hyaline Cast (Auto) U Epithel Cells (Auto) Urine Bacteria (Auto) Urine Comment Adenovirus (PCR) B. pertussis DNA (PCR) B.parapertussis DNA PCR C. pneumoniae DNA (PCR) Coronavirus OC43 (PCR) Coronavirus HKU1 (PCR) Coronavirus 229E (PCR) SARS-CoV-2 (PCR) Coronavirus NL63 (PCR) Human Metapneumovir PCR Influenza Type A (PCR) Influenza Type B (PCR) M. pneumoniae (PCR) Parainfluenza 1 (PCR) Parainfluenza 2 (PCR) Parainfluenza 3 (PCR) Parainfluenza 4 (PCR) RSV (PCR) Entero/Rhino (PCR) Medications Administered Current Inpatient Medications Heparin Sodium (Porcine) (Heparin Sod 5,000 Unit/0.5 Ml Vial) 5,000 units SQ Q12 MARIAJOSE Stop: 08/09/24 08:59 Last Admin: 07/10/24 08:51 Dose: 5,000 units Famotidine (Pepcid 20mg Iv Push) 20 mg in 5 mls @ 2.5 mls/min IV DAILY [facility] Stop: 08/08/24 16:14 Last Admin: 07/10/24 08:43 Dose: 2.5 mls/min Piperacillin Sod/Tazobactam Sod (Zosyn) 4.5 gm in 100 mls @ 25 mls/hr IV Q8H [facility]; Protocol Stop: 07/19/24 19:59 Last Admin: 07/10/24 11:36 Dose: 25 mls/hr Daptomycin 500 mg/ Syringe 10 mls @ 5 mls/min IV Q48H MARIAJOSE; Protocol Stop: 07/21/24 12:59 Acetaminophen (Ofirmev) 1,000 mg in 100 mls @ 400 mls/hr IV Q8H PRN PRN Reason: mild pain or T>38 C Stop: 07/12/24 15:47 Last Infusion: 07/09/24 21:23 Dose: Infused Melatonin (Melatonin 3 Mg Tab) 3 mg PO HS PRN PRN Reason: Sleep Stop: 08/08/24 15:47 Morphine Sulfate (Morphine Sulfate 2 Mg/Ml Carp) 2 mg IV Q3H PRN PRN Reason: Pain Stop: 07/23/24 15:47 Nitroglycerin (Nitroglycerin Sl 0.4 Mg/Tab Tab) 0.4 mg SL Q5M PRN PRN Reason: Chest Pain Stop: 08/08/24 15:47 Ondansetron HCl (Ondansetron Inj 2 Mg/Ml 2 Ml Vial) 4 mg IV Q6H PRN PRN Reason: Nausea Stop: 08/08/24 15:47 Polyethylene Glycol (Polyethylene (Miralax) 17 Gm Pack) 17 gm PO DAILY MARIAJOSE Stop: 08/09/24 09:14 Last Admin: 07/10/24 11:34 Dose: 17 gm Tamsulosin HCl (Tamsulosin Hcl 0.4 Mg Cap) 0.4 mg PO HS MARIAJOSE Stop: 08/08/24 20:59 Last Admin: 07/09/24 21:23 Dose: Not Given PG Care Time/CCT Total # of Minutes Spent Total Time Spent with Patient: Total time spent is greater than 50% in coordination of care (as documented) at patient's floor/unit and/or counseling patient: Coding Level of Care Code 15424 SUB INP/OBS CARE 2/35MIN Diagnoses Extraperitoneal bladder perforation N32.89 MAU (acute kidney injury) N17.9 Ileus K56.7 Complicated UTI (urinary tract infection) N39.0 Peritonitis K65.9 Acute metabolic encephalopathy G93.41 Hypoxia R09.02 Kidney stones N20.0 Peripheral vascular disease I73.9 Hyperlipidemia E78.5 Thoracic aortic aneurysm (TAA) I71.20 Hypertension I10 [address] R93.89 Time Spent (min) 35
[2024-07-10 16:35] VITALS: RESP 18
[2024-07-11 06:20] LABS: Hematocrit (blood only) 40.3 % (42.0-52.0); Hemoglobin 12.8 g/dl (14.0-18.0); Mean Corpuscular Hemoglobin 25.8 pg (25.0-34.0); Mean Corpuscular Hgb Conc 31.8 g/dL (32.0-36.0); Mean Corpuscular Volume 81.1 fL (80.0-100.0); Mean Platelet Volume 10.4 fL (9.4-12.4); Platelet Count 214 K/uL (130-400); RDW Coefficient of Variation 16.1 % (11.5-14.5); Red Blood Count 4.97 M/uL (4.70-6.10); White Blood Count 5.81 K/ul (4.8-10.8)
[2024-07-11 06:53] LABS: BUN Creatinine Ratio 18.3 (10-20); Calcium 8.8 mg/dl (8.6-10.3); Creatinine Clr Calc Pharmacy 72.3 ml/min; Potassium 3.7 mmol/L (3.5-5.1)
[2024-07-11] MEDS: SODIUM CHLORIDE 0.9% 1,000 ML IV ONE (09:07)
[2024-07-11 11:16] VITALS: BP 168/91; PULSE 77; TEMP 99.3; O2SAT 93
--- NOTE | 2024-07-11 12:11 | Hospitalist Progress Note ---
Date of Service July 11, 2024 Assessment & Plan (1) Extraperitoneal bladder perforation: (2) MAU (acute kidney injury): (3) Ileus: (4) Complicated UTI (urinary tract infection): (5) Peritonitis: (6) Acute metabolic encephalopathy: (7) Hypoxia: (8) Kidney stones: (9) Peripheral vascular disease: (10) Hyperlipidemia: (11) Thoracic aortic aneurysm (TAA): (12) Hypertension: (13) Abnormal chest CT: Plan 73yo male with history of HTN, thoracic aortic aneurysm, melanoma of left foot s/p excision 2023, and kidney stone/bladder stone who presents today from home with ongoing left-sided abdominal pain as well as suprapubic pain. Patient underwent cystoscopy with Laser Cystolitholapaxy and Laser fulguration/cauterization of prostatic varicosity, left Ureteronephroscopy, Retrograde Pyelogram, Ureteral Dilation, Laser Destruction of Stone, Basket Extraction of the Stone, Insertion of urinary stent on left by Dr Jamar Fuentes on 07/06/24. He had a large bladder stone - about 2.5cm in size - as well as a large staghorn kidney stone on the left that were treated/removed. Post-op he was discharged to home in stable condition. He was asked to take prophylactic keflex upon discharge home. Returned to the [facility] ER on 07/07/24 with complaints of abdominal pain, nausea, difficulty voiding, and hematuria. CT abd/pelvis at that time showed findings concerning for extraperitoneal bladder rupture with free air & free fluid. [facility] was consulted. He had evidence of MAU with creatinine of 3.8 thought 2nd to bladder perforation/recent surgery. Geiger catheter was placed. By report he signed out AMA as the ER attending was planning to do additional testing for hypoxia noted while in the ER that evening. overall plan he's left the hospital against medical advice urine culture is negative; abdomen soft to touch ?? peritonitis causing his septic shock? he's was agitated and did not stay for complete the AMA form fortunately, his urine culture is negative f/u with urology repeat BMP in 5-7 days he's need outpatient f/u on aortic aneurysm and chronic RLL finding ileus he's tolerate regular diet for past 24 hours #abdominal pain - resolved; abdomen soft to touch -suspect multifactorial causes including peritonitis from his bladder rupture, ?UTI, ileus, etc. -CT a/p today shows improved free fluid but still with considerable free air in the abdomen -CT also shows evidence of colonic ileus ?? UTI versus peritonitis in the form of zosyn/daptomycin, morphine prn, urology consult as below, serial exams urine culture negative. urology cleared for discharge by tomorrow, he' need the geiger remained for up to 14 days #extraperitoneal bladder rupture - cleared by urology for dishcarge -as seen initially on CT abd/pelvis on 07/07/2024 -this occurred in the setting of recent cystoscopy with considerable urological intervention of a large bladder stone, left-sided staghorn stone, stent placement on left, fulguration of varicosities, etc. -urology has been consulted -they are planning on CT cystogram to confirm ongoing bladder leak -appreciate urology consultation & management - -continue geiger -await CT cystogram results #suspected complicated UTI - -u/a suspicious for such although no bacteria on microscopy -urine cx, blood cx's dispatched -in light of bladder rupture, recent surgery/instrumentation, peritonitis, etc --> broad spectrum IV abx with zosyn & daptomycin #peritonitis - suspected - -as above abdomen soft to touch on 07/10/2024 9am #MAU - -improving from 3.8--> 2.9---> 1.5 --> 1.2 #acute metabolic encephalopathy - stable. -2nd to bladder rupture, ?UTI, peritonitis, MAU, recent surgery, etc. #hypertension - -hold atenolol -cont flomax in light of urological issues #hypoxia with abnormal RLL on chest imaging - -the RLL abnormal lung findings appear chronic -patient vaguely remembers being told 10+ years ago about abnormalities in the right lower lobe -he does have chronic cough but that cough is unchanged -I have low suspicion that he has an acute process of the RLL such as a superimposed RLL pneumonia -with that said I consulted Dr Bob from Pulmonary for his opinion regarding the RLL findings -bronchogenic cyst? pulmonary sequestration? outpatient sleep studies, prior to dc, 2 step study incentive umair and aerokina device -of note - pt's chest x-ray today with "CHF" on report but he has no clinical evidence of such on examination #h/o melanoma of left foot in 2023, s/p excision - -no signs of metastatic disease/recurrent disease on imaging #thoracic ascending aortic aneurysm - -4.9cm in diameter on CT chest in 2023; he is due for repeat imaging -he will be seen at [facility] in the next few weeks as outpatient for the abnormal RLL; suspect they will repeat his chest imaging at that time and aneurysm can be rechecked then #DVT proph - -urology is ok with low-dose heparin SC - 5000 BID - starting tomorrow; ordered for 07/10 AM #morbid obesity - BMI ~40 #PAD - -patient had arterial duplex studies of both legs with ABIs at [facility] in 2023 -RITIKA on right was wnl; RITIKA on left was reduced -duplex showed mild PAD of right leg with mod-severe PAD of the LLE -he denies any recent PAD symptoms of either leg -should continue on aspirin 81mg daily -LDL was 139 earlier this month --- ideally should be on statin therapy for such; I am not aware of any statin intolerance will order PT/OT evals while here due to weakness Admission and Anticipated Discharge Date Admission Date: July 09, 2024 Subjective His MAU improving, his urine still draining concentrated urine He is tolerating breakfast at lunch He and him leaving the hospital on his own, without notifying the nurses and Dr. His urine culture is still negative He will follow-up with urology Review of Systems Review of Systems: Constitutional: No Weight Change, No Fever, No Chills, No Night Sweats, No Fatigue, No Malaise Cardiovascular: No Chest Pain, No SOB, No PND, No Dyspnea on Exertion, No Orthopnea, No Claudication, No Edema, No Palpitations Respiratory: No Cough, No Sputum, No Wheezing, No Smoke Exposure, No Dyspnea Gastrointestinal: No Nausea, No Vomiting, No Diarrhea, No Constipation, No Pain, No Heartburn Genitourinary: no hematuria; no dysuria Musculoskeletal: No Arthralgias, No Myalgias, No Joint Swelling, No Joint Stiffness, No Back Pain, No Neck Pain, No Injury History Skin: No Skin Lesions, No Pruritis, No Hair Changes, No Breast/Skin Changes, No Nipple Discharge Neuro: No Weakness, No Numbness, No Paresthesias, No Loss of Consciousness, No Syncope, No Dizziness, No Headache, No Coordination Changes, No Recent Falls Physical Exam Physical Exam: VITALS: Reviewed. WEIGHT/BMI reviewed. GEN: Healthy appearing, well-developed, NAD. -Head: NC/AT; -Mouth and throat: MMM. Normal gums, muc dayna, palate,. Good dentition. NECK: Supple, with no masses. CV: RRR, no m/r/g. LUNGS: CTAB, no w/r/c. ABD: Soft, NT/ND, NBS, no masses or organomegaly. non-tender to palaptio : geiger; draining concentrated urine SKIN: Warm, well perfused. No skin rashes or abnormal lesions. MSK: No deformities, Normal gait. EXT: No clubbing, cyanosis, or edema. NEURO: AAOx3 Results & Data Results & Data Vital Signs (Past 12 Hours) Vital Signs Temp Pulse Pulse Resp BP Pulse Ox O2 Del Method 07/11/24 11:15 37.4 C 77 18 168/91 H 93 Room Air 07/11/24 07:47 36.4 C L 66 18 176/82 H 91 Room Air 07/11/24 07:39 71 07/11/24 03:21 36.9 C 72 18 162/77 H 90 Room Air 07/11/24 00:38 73 Laboratory Results Abnormal Lab Results 07/11/24 05:35 WBC 5.81 RBC 4.97 Hgb 12.8 L Hct 40.3 L MCV 81.1 MCH 25.8 MCHC 31.8 L RDW Std Deviation 47.0 H RDW Coeff of Jenniefr 16.1 H Plt Count 214 MPV 10.4 Sodium 144 Potassium 3.7 Chloride 110 H Carbon Dioxide 24 Anion Gap 10 BUN 20 Creatinine 1.09 D Est Cr Clr Drug Dosing 72.3 eGFR 71.22 BUN/Creatinine Ratio 18.3 Glucose 104 H Calcium 8.8 Medications Administered Home Medications atenolol 50 mg tablet 50 mg PO QPM 11/12/19 [History Confirmed 07/09/24] aspirin-caffeine 500 mg-32.5 mg tablet (Soraya Back and Body) 1 tab PO DAILY PRN Pain 08/07/22 [History Confirmed 07/09/24] aspirin 81 mg tablet,delayed release (Adult Low Dose Aspirin) 81 mg PO QPM 11/28/23 [History Confirmed 07/09/24] omega 7-qhy-vip-fish oil 60 mg-90 mg-500 mg capsule (Fish Oil) 1 cap PO QPM 11/28/23 [History Confirmed 07/09/24] dandelion root 525 mg capsule 525 mg PO QPM 06/26/24 [History Confirmed 07/09/24] phenazopyridine 200 mg tablet (Pyridium) 200 mg PO Q8H PRN pain #10 tabs 07/06/24 [Rx Confirmed 07/09/24] tamsulosin 0.4 mg capsule 0.4 mg PO HS #30 caps 07/06/24 [Rx Confirmed 07/09/24] cephalexin 500 mg capsule 500 mg PO Q6H 7 days #28 caps 07/07/24 [Rx Confirmed 07/09/24] Active Medications Heparin Sodium (Porcine) (Heparin Sod 5,000 Unit/0.5 Ml Vial) 5,000 units SQ Q12 MARIAJOSE Stop: 08/09/24 08:59 Last Admin: 07/11/24 09:10 Dose: Not Given Famotidine (Pepcid 20mg Iv Push) 20 mg in 5 mls @ 2.5 mls/min IV DAILY MARIAJOSE Stop: 08/08/24 16:14 Last Admin: 07/11/24 09:10 Dose: Not Given Piperacillin Sod/Tazobactam Sod (Zosyn) 4.5 gm in 100 mls @ 25 mls/hr IV Q8H MARIAJOSE; Protocol Stop: 07/19/24 19:59 Last Infusion: 07/11/24 08:24 Dose: Infused Daptomycin 500 mg/ Syringe 10 mls @ 5 mls/min IV Q48H MARIAJOSE; Protocol Stop: 07/21/24 12:59 Acetaminophen (Ofirmev) 1,000 mg in 100 mls @ 400 mls/hr IV Q8H PRN PRN Reason: mild pain or T>38 C Stop: 07/12/24 15:47 Last Infusion: 07/09/24 21:23 Dose: Infused Melatonin (Melatonin 3 Mg Tab) 3 mg PO HS PRN PRN Reason: Sleep Stop: 08/08/24 15:47 Morphine Sulfate (Morphine Sulfate 2 Mg/Ml Carp) 2 mg IV Q3H PRN PRN Reason: Pain Stop: 07/23/24 15:47 Nitroglycerin (Nitroglycerin Sl 0.4 Mg/Tab Tab) 0.4 mg SL Q5M PRN PRN Reason: Chest Pain Stop: 08/08/24 15:47 Ondansetron HCl (Ondansetron Inj 2 Mg/Ml 2 Ml Vial) 4 mg IV Q6H PRN PRN Reason: Nausea Stop: 08/08/24 15:47 Polyethylene Glycol (Polyethylene (Miralax) 17 Gm Pack) 17 gm PO DAILY MARIAJOSE Stop: 08/09/24 09:14 Last Admin: 07/11/24 08:21 Dose: Not Given Tamsulosin HCl (Tamsulosin Hcl 0.4 Mg Cap) 0.4 mg PO HS MARIAJOSE Stop: 08/08/24 20:59 Last Admin: 07/10/24 19:53 Dose: 0.4 mg PG Care Time/CCT Total # of Minutes Spent Total Time Spent with Patient: Total time spent is greater than 50% in coordination of care (as documented) at patient's floor/unit and/or counseling patient: Coding Level of Care Code 42866 SUB INP/OBS CARE 2/35MIN Diagnoses Extraperitoneal bladder perforation N32.89 MAU (acute kidney injury) N17.9 Ileus K56.7 Complicated UTI (urinary tract infection) N39.0 Peritonitis K65.9 Acute metabolic encephalopathy G93.41 Hypoxia R09.02 Kidney stones N20.0 Peripheral vascular disease I73.9 Hyperlipidemia E78.5 Thoracic aortic aneurysm (TAA) I71.20 Hypertension I10 [address] R93.89 Time Spent (min) 35
[2024-07-11] MEDS ORDERED: DAPTOmycin 500 MG in SYRINGE 0 ML IV SCH (13:00)
--- NOTE | 2024-07-11 14:34 | Discharge Summary ---
Discharge Summary Date of Service July 11, 2024 Principal Dx & Hospital Course #1 = Principal Diagnosis (1) Extraperitoneal bladder perforation: he has geiger catheter inserted. noted he s/p laser cytolitholapaxy and left uretero-nephroscopy, and laser destruction of stones and basket extraction of stones and insert of left ureteral stent by urology Dr. Cruz. on 07/09/2024, he's came to the hospital ER for diffuse abdominal pain and nausea, and distension. his CT abdomen found extra-peritoneal bladder rupture with slight improvement. he was in MAU o CKD. creatinine of 2.6 there was also concern for ileus. and he's was NPO on 07/09 the etiology of his abdominal pain included peritonitis, bowel ileus. he was maintain on zosyn and daptomycin for sepsis coverage his abdominal pain improved and we advance his diet from clear to regular diet his urine culture is negative on 07/11/2024; 11am, he's became frustrated, upset about being in the hospital he left the hospital prior to being seen in the doctor he did not complete the AMA form. he was AAox3 on the morning of the evaluation. he understand the concepts of the medical illness, infection, ileus and need to remained on geiger catheter he's has capacity to left the hospital against medical advice (2) MAU (acute kidney injury): (3) Ileus: resolved advanced from clear to regular diet (4) Complicated UTI (urinary tract infection): (5) Peritonitis: no worsening pain for 48 hours (6) Acute metabolic encephalopathy: resolved since 07/10 AAOx3 (7) Hypoxia: (8) Kidney stones: (9) Peripheral vascular disease: (10) Hyperlipidemia: (11) Thoracic aortic aneurysm (TAA): (12) Hypertension: (13) Abnormal chest CT: Plan 73yo male with history of HTN, thoracic aortic aneurysm, melanoma of left foot s/p excision 2023, and kidney stone/bladder stone who presents today from home with ongoing left-sided abdominal pain as well as suprapubic pain. Patient underwent cystoscopy with Laser Cystolitholapaxy and Laser fulguration/cauterization of prostatic varicosity, left Ureteronephroscopy, Retrograde Pyelogram, Ureteral Dilation, Laser Destruction of Stone, Basket Extraction of the Stone, Insertion of urinary stent on left by Dr Jamar Fuentes on 07/06/24. He had a large bladder stone - about 2.5cm in size - as well as a large staghorn kidney stone on the left that were treated/removed. Post-op he was discharged to home in stable condition. He was asked to take prophylactic keflex upon discharge home. Returned to the [facility] ER on 07/07/24 with complaints of abdominal pain, nausea, difficulty voiding, and hematuria. CT abd/pelvis at that time showed findings concerning for extraperitoneal bladder rupture with free air & free fluid. [facility] [place]. He had evidence of MAU with creatinine of 3.8 thought 2nd to bladder perforation/recent surgery. Geiger catheter was placed. By report he signed out AMA as the ER attending was planning to do additional testing for hypoxia noted while in the ER that evening. overall plan he's left the hospital against medical advice urine culture is negative; abdomen soft to touch ?? peritonitis causing his septic shock? he's was agitated and did not stay for complete the AMA form fortunately, his urine culture is negative f/u with urology repeat BMP in 5-7 days he's need outpatient f/u on aortic aneurysm and chronic RLL finding ileus he's tolerate regular diet for past 24 hours #abdominal pain - resolved; abdomen soft to touch -suspect multifactorial causes including peritonitis from his bladder rupture, ?UTI, ileus, etc. -CT a/p today shows improved free fluid but still with considerable free air in the abdomen -CT also shows evidence of colonic ileus ?? UTI versus peritonitis in the form of zosyn/daptomycin, morphine prn, urology consult as below, serial exams urine culture negative. urology cleared for discharge by tomorrow, he' need the geiger remained for up to 14 days #extraperitoneal bladder rupture - cleared by urology for dishcarge -as seen initially on CT abd/pelvis on 07/07/2024 -this occurred in the setting of recent cystoscopy with considerable urological intervention of a large bladder stone, left-sided staghorn stone, stent placement on left, fulguration of varicosities, etc. -urology has been consulted -they are planning on CT cystogram to confirm ongoing bladder leak -appreciate urology consultation & management - -continue geiger -await CT cystogram results #suspected complicated UTI - -u/a suspicious for such although no bacteria on microscopy -urine cx, blood cx's dispatched -in light of bladder rupture, recent surgery/instrumentation, peritonitis, etc --> broad spectrum IV abx with zosyn & daptomycin #peritonitis - suspected - -as above abdomen soft to touch on 07/10/2024 9am #MAU - -improving from 3.8--> 2.9---> 1.5 --> 1.2 #acute metabolic encephalopathy - stable. -2nd to bladder rupture, ?UTI, peritonitis, MAU, recent surgery, etc. #hypertension - -hold atenolol -cont flomax in light of urological issues #hypoxia with abnormal RLL on chest imaging - -the RLL abnormal lung findings appear chronic -patient vaguely remembers being told 10+ years ago about abnormalities in the right lower lobe -he does have chronic cough but that cough is unchanged -I have low suspicion that he has an acute process of the RLL such as a superimposed RLL pneumonia -with that said I consulted Dr Bob from Pulmonary for his opinion regarding the RLL findings -bronchogenic cyst? pulmonary sequestration? outpatient sleep studies, prior to dc, 2 step study incentive umair and aerokina device -of note - pt's chest x-ray today with "CHF" on report but he has no clinical evidence of such on examination #h/o melanoma of left foot in 2023, s/p excision - -no signs of metastatic disease/recurrent disease on imaging #thoracic ascending aortic aneurysm - -4.9cm in diameter on CT chest in 2023; he is due for repeat imaging -he will be seen at [facility] in the next few weeks as outpatient for the abnormal RLL; suspect they will repeat his chest imaging at that time and aneurysm can be rechecked then #DVT proph - -urology is ok with low-dose heparin SC - 5000 BID - starting tomorrow; ordered for 07/10 AM #morbid obesity - BMI ~40 #PAD - -patient had arterial duplex studies of both legs with ABIs at [facility] in 2023 -RITIKA on right was wnl; RITIKA on left was reduced -duplex showed mild PAD of right leg with mod-severe PAD of the LLE -he denies any recent PAD symptoms of either leg -should continue on aspirin 81mg daily -LDL was 139 earlier this month --- ideally should be on statin therapy for such; I am not aware of any statin intolerance will order PT/OT evals while here due to weakness Admission HPI Per Admitting Provider 73yo male with history of HTN, thoracic aortic aneurysm, melanoma of left foot s/p excision 2023, and kidney stone/bladder stone who presents today from home with ongoing left-sided abdominal pain as well as suprapubic pain. Patient underwent cystoscopy with Laser Cystolitholapaxy and Laser fulguration/cauterization of prostatic varicosity, left Ureteronephroscopy, Retrograde Pyelogram, Ureteral Dilation, Laser Destruction of Stone, Basket Extraction of the Stone, Insertion of urinary stent on left by Dr Jamar Fuentes on 07/06/24. He had a large bladder stone - about 2.5cm in size - as well as a large staghorn kidney stone on the left that were treated/removed. Post-op he was discharged to home in stable condition. He was asked to take prophylactic keflex upon discharge home. He returned to [facility] on 07/07/24 with abdominal pain, nausea, difficulty voiding, and gross hematuria. CT abd/pelvis at that time showed evidence of bladder perforation with free fluid as well as free air. Creatinine was elevated to 3.8. Was seen by [facility] - geiger catheter placed - and ultimately signed out AMA from the ER on 07/07/24 per the ER attending documentation from that evening. Upon return home he continued with abdominal pain, nausea, no flatus or bowel movement, abdominal distension/bloating, and poor appetite. He also has felt confused. Denies dyspnea but does have baseline THOMAS. Has chronic, daily cough with some sputum production. Reports he will be seeing [facility] in a few weeks for the chronic right lower lobe abnormalities seen on CT scan. While in the ER he was noted to be mildly hypoxic in room air - 89% - and thus supplemental oxygen was added. During my admission assessment his main complaint is that of the left-sided abdominal pain & suprapubic pain. Denies any issues with his geiger catheter since insertion on 07/07/24. Discharge Exam VITALS: Reviewed. WEIGHT/BMI reviewed. GEN: Healthy appearing, well-developed, NAD. -Head: NC/AT; NECK: Supple, with no masses. CV: RRR, no m/r/g. LUNGS: CTAB, no w/r/c. ABD: Soft, NT/ND, NBS, no masses or organomegaly. : + for geiger catheter; draining clear urine no CVA tenderness EXT: No clubbing, cyanosis, or edema. NEURO: AAOx3 Discharge Plan Discharge Items Patient Disposition: Against Medical Advice Reason For Visit: MAU, BLADDER PERFPRATION, ILEUS, POSSIBLE UTI Condition on Discharge: Good Activity: Per Instructions section Lifting: Gradually increase as tolerated Non-emergency contact: Primary Care Provider and Urologist Follow-up/Referrals: Martha Mitchell DO [Primary Care Provider] - Pending Studies at Discharge: Yes Stand-Alone Forms: My [facility] labs, Smoking Cessation Skilled Items Patient informed of condition?: Yes Medications and DC Order Prescriptions: Continued omega 2-cco-qyw-fish oil [Fish Oil] 60-90-500 mg capsule 1 cap PO QPM aspirin [Adult Low Dose Aspirin] 81 mg tablet,delayed release (DR/EC) 81 mg PO QPM atenolol 50 mg tablet 50 mg PO QPM Soraya Back and Body 500-32.5 mg Tablet 1 tab PO DAILY PRN (Reason: Pain) cephalexin 500 mg capsule 500 mg PO Q6H 7 Days Qty: 28 0RF dandelion root 525 mg Capsule 525 mg PO QPM phenazopyridine [Pyridium] 200 mg tablet 200 mg PO Q8H PRN (Reason: pain) Qty: 10 0RF tamsulosin 0.4 mg capsule 0.4 mg PO HS Qty: 30 0RF Discharge Orders: Left Against Medical Advice (Routine); Ordered 07/11/24 Ordered By: Norma Solitario/Other Patient Handouts: Acute Kidney Failure Dc Admission Data Admit Date/Time: 07/09/24 13:21 Attending Provider: Norma Brown Admit Provider: Jerry Dennis Primary Care Provider: Martha Mitchell Other Providers: Jerry Dennis; July Bob; Jamar Fuentes; [place] Hospital Stay Data Consultations 07/09/24 12:24 ED Decision to Admit Stat 07/09/24 15:48 Consult Pulmonology Routine Consult Urology Routine Diagnostic Imagining Performed 07/09/24 10:53 CT abd pelvis wo con Stat 07/09/24 14:44 CT pelvis wo/w con Stat Total Time Total Time Spent Total Time Spent (In Minutes): 35 minutes Coding Level of Care Code 88637 INP/OBS DISCH >30 MIN Diagnoses Extraperitoneal bladder perforation N32.89 MAU (acute kidney injury) N17.9 Ileus K56.7 Complicated UTI (urinary tract infection) N39.0 Peritonitis K65.9 Acute metabolic encephalopathy G93.41 Hypoxia R09.02 Kidney stones N20.0 Peripheral vascular disease I73.9 Hyperlipidemia E78.5 Thoracic aortic aneurysm (TAA) I71.20 Hypertension I10 [address] R93.89 Time Spent (min) 35
--- NOTE | 2024-07-13 16:49 | Coding Query ---
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 Please assist us with the question(s) below: In responding to this query, please exercise your independent professional judgement. The fact that a question is asked does not imply that any particular answer is desired or expected. We appreciate your clarification on this issue. Throughout the medical record, you have clearly documented a localized infection and your patient has clinical evidence of a generalized sepsis or severe sepsis. The term urosepsis is a nonspecific entity and is coded as an UTI. If the patient has sepsis, severe sepsis, from an urinary source or some other source, please clarify in your response below. The medical record reflects the following clinical findings: Patient admitted several days postop lithotripsy for large bladder stone. Admitted with peritonitis, bladder perforation. Discharge Summary, progress notes documented Septic shock. Please check below all that apply. . Thank you ! [facility] ____ ( )Bacteremia (Nonspecific laboratory finding of bacteria in the blood) Specify Organism ( x) Present on Admission ( ) Not present on admission ( ) Unable to clinically determine ( ) Septicemia (Systemic disease associated with the presence of pathogenic microorganisms in the blood): Specify Organism ( x) Present on Admission ( ) Not present on admission ( ) Unable to clinically determine (x ) Sepsis Specify Organism Specify Associated Condition/Diagnosis (x ) Present on Admission ( ) Not present on admission ( ) Unable to clinically determine ( x) Severe Sepsis (Sepsis associated with acute organ dysfunction) Specify Organism Specify Associated Condition/Diagnosis (x ) Present on Admission ( ) Not present on admission ( ) Unable to clinically determine ( x) Septic Shock (Severe sepsis with acute circulatory failure, unexplained by other causes) (x) Present on Admission () Not present on admission () Unable to clinically determine ( ) Other, patient has Post Procedure Sepsis : ( ) Other, please document: MTDD
== END 2024-07-11 12:45 | disposition left against medical advice (07) | DRG 862 ==
LOC: ED 09:56 → SUATTDRO 13:21 → 4W 13:21